=== PATIENT | male | born 1960 | race Caucasian/White ===

== ENCOUNTER 2020-09-21 16:20 | Outpatient (REF) | payer MEDICAID, OTHER, SELFPAY | END 2020-09-21 16:21 | disposition home or self-care (01) | LOC: HO.LAB 16:20 | PROVIDERS: PCP Nurse Practitioner Family; Visit Provider Internal Medicine | DX: Z20.822 Contact with and (suspected) exposure to COVID-19 (principal) | CPT/HCPCS: 36415; C9803; U0003; U0005 ==

== ENCOUNTER 2021-10-13 11:47 | Emergency (ER) | payer MEDICAID, OTHER, SELFPAY ==
--- NOTE | ~2021-10-13 | XR_ITS ---
EXAMINATION: XR LUMBOSACRAL SPINE CLINICAL INFORMATION: Fall. Low back pain. COMPARISON: None TECHNIQUE: Three views of the lumbosacral spine. FINDINGS: Bone alignment is normal. No fracture or dislocation is seen. There may be a transitional vertebral body segment or 6 lumbar-type vertebral bodies. There is mild multilevel degenerative spondylosis. Disc spaces are normal. There is sacralization of the transverse process of the transitional segment and degenerative changes on the left. XR/XR lumbar spine 2-3V IMPRESSION: No fracture is seen. Mild degenerative changes.
--- NOTE | ~2021-10-13 | XR_ITS ---
EXAMINATION: XR HIP, RIGHT CLINICAL INFORMATION: Pain post fall COMPARISON: None TECHNIQUE: Two views of the right hip and one view of the pelvis. FINDINGS: Bone alignment is normal. No fracture or dislocation is seen. There are mild degenerative changes of the hip joints with small superior lateral acetabular osteophytes. The right hip joint is otherwise normal. Soft tissues are normal. XR/XR hip RT w PEL1V IMPRESSION: No fracture or dislocation seen.
[2021-10-13 11:54] VITALS: BP 150/90; PULSE 84; O2SAT 99
[2021-10-13 12:02] VITALS: BP 162/84; PULSE 90; RESP 17; TEMP 36.7; O2SAT 98; BMI 28.8
--- NOTE | 2021-10-13 12:08 | ED.FALL ---
HPI - Fall General Chief Complaint: Fall Stated Complaint: fall Time Seen by Provider: 10/13/21 12:01 Source: patient and EMS Mode of arrival: EMS History of Present Illness HPI Narrative: 61 y/o Kazakh speaking male presents to the ER via EMS with right sided low back pain and pain the right hip after he slipped and fell on the snow today just prior to arrival. He states he was walking when he slipped and fell backward onto his right buttock and low back. He was slowly able to get up. He did not hit his head or lose consciousness. He is not on any anticoagulation. He was able to slowly walk and bear weight on the right leg. MD complaint: fall Onset (ago): minute(s) Fall from: standing Fall witnessed: yes, by family Place fall occurred: home Loss of consciousness: none Prolonged down time: no Context: tripped/slipped Location of injury: back Severity: severe Severity scale (1-10): 8 Quality: sharp Associated symptoms (after fall): denies Related Data Previous Rx's Medication Instructions Recorded cyclobenzaprine 10 mg tablet 10 mg PO TID PRN #14 tab 10/13/21 ibuprofen 600 mg tablet 600 mg PO Q8H PRN #20 tab 10/13/21 lidocaine 5 % topical patch 1 patch TOPICAL DAILY #15 ea 10/13/21 Allergies Allergy/AdvReac Type Severity Reaction Status Date / Time No Known Allergies Allergy Unverified 05/05/20 18:31 Review of Systems Review of Systems: Constitutional: No Fever, No Chills Cardiovascular: No Chest Pain, No SOB Gastrointestinal: No Nausea, No Vomiting, No abdominal Pain Genitourinary:No Hematuria Musculoskeletal: + joint pain, + Myalgias Skin: No Skin Lesions, No rash Neuro: No Weakness, No Numbness, No Dizziness, No Headache Psych: No Anxiety/Panic, No Depression Heme/Lymph: No Bruising PMFSH Past Medical History Medical History (Updated 10/13/21 @ 13:02 by LYNDON Lowe) No known health problems Social History Social History Advance Directives: No Advance Directives Information Provided: No Physical Exam Vital Signs: Vital Signs: Last Vital Signs Temp 98.0 F 10/13/21 12:02 Pulse 90 10/13/21 12:02 Resp 17 10/13/21 12:02 BP 162/84 H 10/13/21 12:02 Pulse Ox 98 10/13/21 12:02 BMI result Body Mass Index 28.8 Appearance: Alert. Oriented X3. No acute distress. Eyes: Pupils equal, round and reactive to light. ENT: Pharynx normal. Neck: Normal inspection. Neck supple. CVS: Normal heart rate and rhythm. Pulses normal. Respiratory: No respiratory distress. Breath sounds normal. Abdomen: Soft and nontender. +BS x4 Back: right upper, middle and lower lumbar area with soft tissue tenderness, no midline tenderness. no ecchymosis, no CVA tenderness. Pelvis: stable, no tenderness of the right hip. normal passive ROM of the right hip with pain in the low back on straight leg raise Skin: Skin warm and dry. Normal skin color. Normal skin turgor. No rashes. Extremities:atraumatic x4 Neuro: Oriented X 3. Slow but steady gait Course Course Course Narrative: 7-year-old male presents to the ER with right lower back and right hip pain after he slipped and fell on the snow earlier today. He stepped back and fell on to snow that was on top of concrete. No head strike or loss of consciousness. Not on anticoagulation. He has soft tissue tenderness of the right lower back with no midline tenderness. Given trauma will get x-rays of the lumbar spine and right hip. Doubt acute fracture. Reevaluation(s) Reevaluation #1: X-rays today are normal. No evidence of any acute fractures. His pain is most likely muscular, either due to strain or contusion. Will plan to DC home with supportive care including NSAIDs, Lidoderm, p.r.n. muscle relaxers. Encouraged follow-up with his primary care doctor. Stable for discharge home. Critical Care Time Critical Care Time Critical Care Time: No Discharge Plan Discharge Clinical Impression: Contusion of lower back, Strain of fascia of lower back Patient Disposition: Home, Self-Care Instructions: Low Back Strain (ED), Lower Back Exercises (ED) Additional Instructions: Your x-rays today are normal. Your pain is most likely muscular. No bending, lifting or twisting. Use ice several times per day for 20 minutes at a time for the next 48 hours and then change to heat. Take medications as prescribed to help with pain and discomfort. Follow up with your Primary Care Doctor this week. If your pain worsens, if you develop new numbness, tingling, weakness, loss of function or incontinence call 911 or come back to the ER right away for evaluation. Tus radiograf?as de hoy son normales. Lo m?s probable es que tu dolor sea muscular. Sin doblar, levantar o torcer. Use hielo varias veces al d?a dwayne 20 minutos a la vez dwayne las pr?ximas 48 horas y luego cambie a calor. [place] los medicamentos seg?n lo prescrito para ayudar con el dolor y la incomodidad. Charly un seguimiento con park m?dico de atenci?n primaria esta semana. Si park dolor empeora, si desarrolla entumecimiento, hormigueo, debilidad, p?rdida de funci?n o incontinencia, llame al 911 o regrese a la naomi de emergencias de inmediato para chula evaluaci?n. Prescriptions: New cyclobenzaprine 10 mg tablet 10 mg PO TID PRN (Reason: muscle spasm) Qty: 14 0RF ibuprofen 600 mg tablet 600 mg PO Q8H PRN (Reason: pain) Qty: 20 0RF lidocaine 5 % adhesive patch,medicated 1 patch topical DAILY Qty: 15 0RF Rx Instructions: leave on most painful area for up to 12 hrs
[2021-10-13] MEDS: Ibuprofen 600 MG TABLET PO (13:27)
[2021-10-13] MEDS: HYDROcodone Bit/Acetam 5/325 TABLET 1 TAB PO (13:27)
== END 2021-10-13 13:52 | disposition home or self-care (01) ==
PROVIDERS: Emergency Provider Emergency Medicine
DX: S30.0XXA Contusion of lower back and pelvis, initial encounter (principal); M25.551 Pain in right hip; W00.0XXA Fall on same level due to ice and snow, initial encounter; Y93.9 Activity, unspecified; Y92.9 Unspecified place or not applicable; Y99.9 Unspecified external cause status; Z79.899 Other long term (current) drug therapy
CPT/HCPCS: 72100; 73502; 99283

== ENCOUNTER 2024-05-12 09:51 | Outpatient (REF) | payer MEDICAID, OTHER, SELFPAY ==
[2024-05-12 11:45] LABS: Estimated Average Glucose 128 mg/dL; Hemoglobin A1c % 6.1 % (<6.0)
[2024-05-12 11:59] LABS: Alanine Aminotransferase 25 U/L (0-40); Albumin Level 4.5 g/dL (3.5-5.0); Alkaline Phosphatase 53 U/L (39-117); Anion Gap 9 (12-20); Aspartate Amino Transferase 20 U/L (5-37); Bilirubin Total 0.8 mg/dL (0.0-1.0); Blood Urea Nitrogen 16 mg/dL (9-16); Calcium 9.2 mg/dL (8.4-10.2); Carbon Dioxide 27 mmol/L (22-29); Chloride 108 mmol/L (96-108); Cholesterol 265 mg/dL (<200); Estimated Glomerular Filt Rate > 60; Glucose Random 138 mg/dL (60-115); HDL Cholesterol 60 mg/dL (>40); LDL Cholesterol Calculated 181 mg/dL (<100); Potassium 3.8 mmol/L (3.3-5.1); Sodium 140 mmol/L (135-145); Total Protein 7.6 g/dL (6.5-8.0); Triglycerides 123 mg/dL (<150)
== END 2024-05-12 09:52 | disposition home or self-care (01) ==
LOC: HO.HHCL 09:51
PROVIDERS: Visit Provider Nurse Practitioner Primary Care
DX: Z00.00 Encounter for general adult medical examination without abnormal findings (principal); Z13.220 Encounter for screening for lipoid disorders; I10 Essential (primary) hypertension
CPT/HCPCS: 36415; 80053; 80061; 83036

== ENCOUNTER → 2024-10-21 07:52 | Outpatient (REF) | payer MEDICAID, OTHER, SELFPAY ==
--- NOTE | 2024-10-21 07:58 | CA_ITS ---
Transthoracic Echocardiogram Patient (Last, First, Middle): Dru Ramirez, Gender: Male Date of : 1960 Age: 64 Procedure Date: 10/21/2024 Procedure Type: Transthoracic Echocardiogram Location: OP Height: 177.8 cm Weight: 90.72 kg BSA: 2.09 m2 Heart Rate: bpm BP: 130 / 80 mmHg [employer] Radio Technician: TOO Referring MD: Bernadette Woodruff NP Edi Coordinator: Gaudencio Burns MD Symptoms: CHEST PAIN ABNORMAL EKG R94.31 HTN I10 Study Quality: Good ECG Rhythm: Sinus Conclusions: - 1. Normal LV ejection fraction of 60-65% with grade 1 diastolic dysfunction 2. Normal cardiac valvular Dopplers 3. Normal RV systolic pressure 4. Mildly dilated ascending aorta at 3.7 cm 5. No pericardial effusion Findings Left Ventricle Normal left ventricular size, thickness, and systolic function. The visually estimated ejection fraction is between 60-65%. Spectral Doppler is indicative of an impaired relaxation filling pattern. E/E prime ratio is <8, consistent with normal filling pressures. Evidence suggests grade I (mild) diastolic dysfunction. Right Ventricle Normal right ventricular cavity size and systolic function. Atria Both atria are normal in size. There is no evidence of interatrial shunt. Aortic Valve Normal aortic valve structure and function. There is no aortic valve stenosis. There is no aortic valve regurgitation. Mitral Valve Normal mitral valve structure and function. There is trace mitral valve regurgitation. There is no mitral valve stenosis. Pulmonic Valve The pulmonic valve is likely normal. Tricuspid Valve Normal tricuspid valve structure. There is trace tricuspid valve regurgitation. The right ventricular systolic pressure is normal. The right ventricular systolic pressure is 16 mmHg. Normal right atrial pressure. There is no evidence of pulmonary hypertension. Great Vessels The pulmonary artery was not well visualized. There is mild dilatation of the ascending aorta measuring 3.70 cm. Venous The inferior vena cava is normal in size and collapses greater than 50% with inspiration. Pericardium/Pleural There is no evidence of pericardial effusion. Prior Study Comparison No prior study available for comparison. Measurements 2D Linear Measurements IVSd: 0.97 0.6-0.9/0.6-1.0 cm LVIDd: 4.79 3.9-5.3/4.2-5.9 cm LVIDd Index: 2.29 2.4-3.2/2.2-3.1 cm/m2 LVIDs: 2.75 2.0-3.6 cm LVPWd: 1.01 0.7-1.1 cm Ao Root: 3.80 2.1-3.5 cm LA Diam: 3.40 2.7-3.8/3.0-4.0 cm LAIDs Index: 1.63 1.5-2.3 cm/m2 LV Mass: 208.83 67-162/88-224 g LV Mass Index: 99.92 43-95/49-115 g/m2 LVOT Diam: 2.30 3.0+(-)1.3 cm 2D Systolic Function EF 4C: 55.50 >55% EF 2C: 69.40 >55% EF BiP: 63.60 >55% Mitral Valve MV Pk E: 0.64 MV PK A: 0.94 MV Decel Time: 125.00 E/A: 0.70 E'Lateral: 8.59 E'Medial: 5.98 E/E' Med: 10.70 E/E' Lat: 7.40 PHT: 37.00 MVA PHT: 5.95 Decel Sublette: 5.11 Aortic Valve AoV Pk Ryley: 1.55 AoV Pk Grad: 10.00 LVOT LVOT Pk Ryley: 0.93 LVOT Mn Ryley: 0.68 LVOT VTI: 0.18 LVOT Pk Grad: 3.00 LVOT Mn Grad: 2.00 LVOT Diam: 2.30 LVOT Area: 4.15 Diastolic Function MV Pk E: 0.64 MV Pk A: 0.94 E/A: 0.70 E'Medial: 5.98 E/E' Med: 10.70 E' Laterial: 8.59 E/E' Lat: 7.40 Right Ventricle TAPSE (mm): 25.00 TVS' Ryley: 11.00 Tricuspid Valve TR Pk Ryley: 1.83 TR Pk Grad: 13.00 RA Press: 3.00 RVSP: 16.00 Great Vessels Aorta Ao Root-2D: 3.80 2.0-3.7 cm Ao Asc: 3.70 2.1-3.4 cm Ao Arch: 2.60 Pulmonary Valve PV Pk Ryley: 1.21 Peak PV Grad: 6.00 Updated in Other Vendor System with Status of Final Gaudencio Burns MD electronically signed on 10/22/2024 12:27:41 PM with status of Final
--- OUTSIDE RECORDS SUMMARY | 2024-10-21 08:03 | XMS_ITS | Encounter Summary ---
Author Organization [facility] Address [address] [facility] [address] [place] [address] Care Team Providers Care Superintendent Radio Communications Name Role Phone Bernadette Woodruff Primary Care Provider Encounter Details Date Type Department Care Team (Late st Contact Info) Description 12/12/2022 Orders Only [facility] [address] [place] [address] María Johnson LPN Social History Tobacco Use Types Packs/Day Years Used Date Smoking Tobacco: Never Assessed Sex and Gender Information Value Date Recorded Sex Assigned at Male 06/18/2022 10:22 AM EDT Legal Sex Male 10:22 AM EDT Gender Identity Male 06/18/2022 10:22 AM EDT Sexual Orientation Choose not to disclose 2021 10:22 AM EDT documented as of this encounter Plan of Treatment Upcoming Encounters Date Type Department Care Team (Late st Contact Info) Description 01/26/2025 2:30 PM EDT Office Visit [facility] OPTOMETRY [address] [place] [address] ZaneAnca gary, OD [address] [place] [address] documented as of this encounter Visit Diagnoses Not on filedocumented in this encounter Care Teams Superintendent Radio Communications Relationship Specialty Start Date End Date Bernadette Woodruff ANP [address] [place] [address] PCP - General Family Medicine 04/11/22 documented as of this encounter
--- OUTSIDE RECORDS SUMMARY | 2024-10-21 08:03 | XMS_ITS | Clinical Summary ---
Author Organization [facility] Address [address] [place] [address] Care Team Providers Care Carpenter Helper Name Role Phone Bernadette Woodruff Primary Care Provider [phone] Allergies No known active allergies Medications polyethylene glycol (GoLYTELY) solutionIndicat ions:Screen for colon cancer Take according to instructions provided by physician. OK to substitute 4000 mL 4 Active polyethylene glycol (GoLYTELY) solution Refer to prep instructions provided by your physician. Add 1 gallon (128 ounces) of water to the GoLytely/Colyte/ Nulytely container and refrigerate. At 4 PM the day before your procedure, drink one 8-ounce glass of the bowel preparation solution every 10 - 15 minutes until half the container is empty, about 8 glasses. Five (5) hours before your procedure drink one 8-ounce glass of the bowel preparation solution every 10 - 15 minutes until the entire container is empty. Continue to drink clear non-alcoholic liquids up until 2 hours prior to your procedure. 4000 mL 4 11/03/19 25 Active Active Problems Problem Noted Date Diagnosed Date Hypertension 12/23/2013 Encounters Date Type Department Care Team Description 10/13/2024 Prep for [facility] [address] [place] [address] Bulb Tester: Sudarshan Clifford MD PhD 08/04/2024 Prep for [facility] Endoscopy [address] [place] [address] Sydnie Thompson MD from Last 3 Months Social History Tobacco Use Types Packs/Day Years Used Date Smoking Tobacco: Never Comments:: Sex and Gender Information Value Date Recorded Sex Assigned at Male 10/24/2023 10:29 AM EST Legal Sex Male 7:48 AM EDT Gender Identity Not on file Sexual Orientation Not on file Last Filed Vital Signs Vital Sign Reading Time Taken Comments Blood Pressure 163/106 12/23/2013 11:06 AM EDT Pulse 67 12/23/2013 11:06 AM EDT Temperature 36.5 ??C (97.7 ??F) 12/23/2013 11:06 AM E DT Respiratory Rate - - Oxygen Saturation - - Inhaled Oxygen Concentration - - Weight 84.8 kg (187 lb) 12/23/2013 11:06 AM EDT Height 185.4 cm (6' 1 ) 12/23/2013 11:06 AM EDT Body Mass Index 24.67 12/23/2013 11:06 AM EDT Plan of Treatment Upcoming Encounters Date Type Department Care Team (Latest Contact Info) Description 12/01/2024 2:45 PM EDT Hospital Encounter [facility] Endoscopy [address] [place] [address] Wendy Keys MD [address] [place] [address] 12/01/2024 2:45 PM EDT - 12/01/2024 3:30 PM EDT Surgery [facility] Endoscopy [address] [place] [address] Wendy Keys MD [address] [place] [id number] COLONOSCOPY SCREENING, LOW RISK WITH POSSIBLE MODERATE SEDATION Scheduled Procedures Name Priority Associated Diagnoses Date/Ti me COLONOSCOPY SCREENING, LOW RISK WITH POSSIBLE MODERATE SEDATION Encounter for screening colonoscopy 12/01/2024 2:45 PM EDT Health Maintenance Due Date Last Done Comments Basic Metabolic Panel 1960 Cologuard 1960 Colon Cancer Screening 1960 Colonoscopy 1960 FOBT / Fit Test 1960 HIV Screening 1960 Hepatitis C Screening 1960 Sigmoidoscopy 1960 DTaP,Tdap,and Td Vaccines (1 - Tdap) 1983 Pneumococcal Vaccine: 50+ Ye ars (1 of 1 - PCV) 2011 Zoster Vaccines (1 of 2) 2011 COVID-19 Vaccine (1 - 2023-2 5 season) 2024 Influenza Vaccine (#1) 2024 Alcohol/Substance Use Screening 08/19/2024 Depression Screening and Follow-Up 08/19/2024 Social Drivers of Health [place] ual Screening 08/19/2024 RSV Vaccine (60+ years old a nd patients) (1 - 1-dose 75+ series) 02/18/2036 Hepatitis B Vaccines Aged Out No long er eligible based on patient's age to complete this topic [place] [address] [place] [address] HS/FREE [address]ARE [address] [place], [place] [address]HEALTH HSNO/FREE CARE Care Teams Carpenter Helper Relationship Specialty Start Date End Date Bernadette Woodruff [address] [place] [id number] PCP - General 10/24/23
--- OUTSIDE RECORDS SUMMARY | 2024-10-21 08:03 | XMS_ITS | Clinical Summary ---
Author Organization [employer] Address [address] [facility] 7t [place] [address] Care Team Providers Care Legal Referee Name Role Phone Bernadette Woodruff NAILA Primary Care Provider Allergies Active Allergy Reactions Criticality Noted Date Comments Lisinopril Cough 07/03/2018 Medications fluticasone (Flonase) 50 MCG/ACT nasal sprayIndications: Non-seasonal allergic rhinitis, unspecified trigger INSTILL 2 SPRAYS IN EACH NOSTRIL ONCE DAILY IN THE MORNING NEEDED 48 g 023 Active Daily Fiber 43 % powder MIX 1 TEASPOONFUL WITH 8 OUNCES OF WATER AND DRINK UP TO THREE TIMES DAILY MAY INCREASE TO 2 TEASPOONFUL THREE TIMES DAILY as tolerated 576 g 1 023 Active ammonium lactate (Lac-Hydrin) 12 % lotionIndications :Dry skin APPLY TO FEET TWICE DAILY 225 g 5 024 Active atorvastatin (Lipitor) 80 MG tabletIndications :Hyperlipidemia, unspecified hyperlipidemia type TAKE 1 TABLET BY MOUTH AT BEDTIME 90 tablet 3 024 Active pantoprazole (ProtoNix) 40 MG EC tablet Take 1 tablet (40 mg) by mouth in the morning. 90 tablet 024 Active clotrimazole (Clotrimazole Anti-Fungal) 1 % cream APPLY TO THE AFFECTED AREA(S) TOPICALLY TO FEET TWICE DAILY DIRECTED 45 g 1 024 Active fluconazole (Diflucan) 150 MG tabletIndications :Tinea pedis of both feet Take 1 tablet (150 mg) by mouth every 7 (seven) days. 4 tablet 024 Active amLODIPine (Norvasc) 10 MG tablet TAKE 1 TABLET BY MOUTH EVERY DAY IN THE MORNING 90 tablet 1 024 Active labetalol (Normodyne) 200 MG tabletIndications :Benign essential HTN TAKE 2 TABLETS BY MOUTH TWICE DAILY 360 tablet 1 025 Active losartan (Cozaar) 100 MG tabletIndications :Essential hypertension TAKE 1 TABLET BY MOUTH EVERY DAY 90 tablet 1 025 Active losartan (Cozaar) 100 MG tabletIndications :Essential hypertension TAKE 1 TABLET BY MOUTH EVERY DAY 90 tablet 1 024 2024 Discontinued labetalol (Normodyne) 200 MG tabletIndications :Benign essential HTN TAKE 2 TABLETS BY MOUTH TWICE DAILY 360 tablet 1 024 2024 Discontinued Active Problems Problem Noted Date Diagnosed Date Benign essential HTN 10/16/2023 Overview (10/16/2023): amlodipine 10mg, losartan 100mg, labetalol 200mg 2 tabs BID Gastroesophageal reflux disease without esophagi tis 02/23/2016 Pure hypercholesterolemia 02/23/2016 Encounters Date Type Department Care Team Description 10/11/2024 Refill [facility] CHC MED & PEDS [address] [place] [address] Bernadette Woodruff ANP Benign essential HTN; Essential hypertension 07/24/2024 Patient Outreach [facility] MEDICINE [address] [place] [address] Bernadette Woodruff ANP Pre-visit Planning ([facility] screening was completed on 12/16/2023) from Last 3 Months Immunizations Name Administration Dates Next Due Hep A / Hep B 2013 Hep A, Adult 10/12/2013 Hep B, adult 09/08/2013,06/04/2013 Influenza injectable quadriv alent IIV4 with preservative 06/16/2018,05/09/2017,06/13/2016 Influenza injectable quadriv alent preservative free 07/18/2022,06/24/2019 Influenza, Split (incl. phyllis fied surface antigen) 10/12/2013 Influenza, seasonal, injecta ble, preservative free 05/11/2024 Tdap 02/23/2016 Social History Tobacco Use Types Packs/Day Years Used Date Smoking Tobacco: Never Smokeless Tobacco: Never Alcohol Use Standard Drinks/Week Comments Yes 0 (1 standard drink = 0.6 oz pur e alcohol) Alcohol Answer Date Recorded Frequency of Alcohol Consumption Not on file 10/16/2023 Average Number of Drinks Not on file 024 Frequency of Binge Drinking Not on file 09/20 Score 0 10/16/2023 Housing Stability Answer Date Recorded What is your housing situation today? I have giancarlo israel 12/16/[address] you li ve. Do you have problems with any of the following? None of the above 12/16/2023 Food Insecurity Answer Date Recorded Within the past 12 months, y ou worried that your food would run out before you got money to buy more: Never True 12/16/2023 Within the past 12 months,th e food you bought just didn't last and you didn't have enough money to get more: Never True Transportation Answer Date Recorded In the past 12 months, has l ack of transportation kept you from medical appts, meetings, work or from getting things needed for daily living? No 12/16/2023 Utilities Answer Date Recorded In the past 12 months, has t he electric, gas, oil or water company threatened to shut off services in your home? No 12/16/2023 Depression Answer Date Recorded Patient Health Questionnaire-2 Score 0 10/16/2023 Internet Access Answer Date Recorded Internet Access Q1 Yes 07/24/2024 Internet Access Q2 Not on file 07/24/2024 Sex and Gender Information Value Date Recorded Sex Assigned at Male 06/18/2022 10:22 AM EDT Legal Sex Male 10:22 AM EDT Gender Identity Male 06/18/2022 10:22 AM EDT Sexual Orientation Choose not to disclose 2021 10:22 AM EDT Last Filed Vital Signs Vital Sign Reading Time Taken Comments Blood Pressure 170/90 05/11/2024 3:49 PM EDT Pulse 89 05/11/2024 3:32 PM EDT Temperature 36.9 ??C (98.4 ??F) 05/11/2024 3:32 PM ED T Respiratory Rate 18 05/11/2024 3:32 PM EDT Oxygen Saturation 96% 05/11/2024 3:32 PM EDT Inhaled Oxygen Concentration - - Weight 94.5 kg (208 lb 6.4 oz) 05/11/2024 3:32 P M EDT Height 185.4 cm (6' 1 ) 05/11/2024 3:32 PM EDT Body Mass Index 27.5 05/11/2024 3:32 PM EDT Plan of Treatment Upcoming Encounters Date Type Department Care Team (Late st Contact Info) Description 01/26/2025 2:30 PM EDT Office Visit [facility] OPTOMETRY [address] [place] [address] Zane, Anca, OD [address] [place] [address] Health Maintenance Due Date Last Done Comments CT Colonography 1961 Colonoscopy 1961 Colorectal Cancer Screening 1961 FIT DNA/Cologuard 1961 FIT 1961 FOBT 1961 HIV Screening 1961 Sigmoidoscopy 1961 Alcohol/Substance Use Screening 1973 Hepatitis C Screening 1979 Pneumococcal Vaccine: 50+ Years (1 of 1 - PCV) 2011 Zoster Vaccines (1 of 2) 2011 Depression Screening 10/16/2024 10/16/2023, 10/16/19 24 SDOH Screening 12/15/2024 12/16/2023 COVID-19 Vaccine (2 - 2023- season) 2025 09/29/2021 Postponed from 04/19/2024 (Patient Refused) Tobacco Screening 05/11/2025 05/11/2024 Diabetes: Hemoglobin A1C 05/12/2025 05/12/2024, 0712/2021 DTaP/Tdap/Td Vaccines (2 - Td or Tdap) 02/22/2026 02/23/2016 Lipid Panel 05/12/2029 05/12/2024, 03/12/2022 RSV Patients and Patients Aged 60 years or older (1 - 1-dose 75+ series) 02/18/2036 Hepatitis B Vaccines Completed 09/08/2013, 06/04/2013, 2013 Hepatitis A Vaccines Aged Out 10/12/2013, 02/18/20 13 No longer eligible based on patient's age to complete this topic Influenza Vaccine Completed 05/11/2024, , 06/24/2019, Additional history exists HIB Vaccines Aged Out No longer eligi ble based on patient's age to complete this topic HPV Vaccines Aged Out No longer eligi ble based on patient's age to complete this topic IPV Vaccines Aged Out No longer eligi ble based on patient's age to complete this topic Meningococcal Vaccine Aged Out No xavi larissa eligible based on patient's age to complete this topic RSV under 20 months Aged Out No longe r eligible based on patient's age to complete this topic Rotavirus Vaccines Aged Out No longer eligible based on patient's age to complete this topic Procedures Procedure Name Priority Date/Time Associated Diagnosis Comments HEMOGLOBIN A1C Routine 05/12/2024 10:01 AM EDT Healthcare maintenance LIPID PANEL, STANDARD Routine 05/12/2024 10:01 AM EDT Lipid screening from Last 3 Months or Most Recently Relevant to Health Maintenance Results * (ABNORMAL) Hemoglobin A1c (05/12/2024 10:01 AM EDT) Hemoglobin A1c 6.1(H) <6.0 % [facility] Comment:Hemoglobin A1C Refer ence Range Adults: 4.8 - 6.0 % Non diabetic: < 6.0 % Goal: < 7.0 %Additional Action Suggested: > 8.0 %Note: Hemoglobin A1c results are invalid for patients with abnormal amounts of HbF. Blood transfusions may impact the HbA1c concentration in the patient sample. Estimated Average Glucose 128 mg/dL [facility] Comment:eAG = Estimated ave rage glucose which is %A1C expressed asaverage glucose, using the formula of the [id number] Glucose study (ADAG), Diabetes Care, Vol.31,#8,Mar. 2007 Blood Venous blood specimen / Unknown 05/12/2024 10:01 AM EDT 05/12/2024 11:20 AM EDT us Bernadette Woodruff ANP LAB BLOOD ORDERABLES Final Resul t [facility] [address] [place] [address] [phone] * (ABNORMAL) Lipid Panel, Standard (05/12/2024 10:01 AM EDT) Triglycerides 123 <150 mg/dL [facility] Comment:Desirable Triglyceri de: less than 150 mg/dLBorderline High Triglyceride 150-199 mg/dLHigh Triglyceride: 200-499 mg/dLVery High Triglyceride: greater than or equal to 5OO mg/dL Cholesterol 265(H) <200 mg/dL [facility] Comment:Desirable Cholestero l: less than 200 mg/dLBorderline High Cholesterol: 200-239 mg/dLHigh Cholesterol: greater than 239 mg/dL LDL Cholesterol Calculated 181(H) <100 mg/dL [facility] Comment:Desirable LDL: less than 100 mg/dLNear Optimal/Above Optimal LDL: 110- 129 mg/dLBorderline High LDL: 130-159 mg/dLHigh LDL: 160-189 mg/dLVery High LDL: greater than or equal to 190 mg/dL HDL Cholesterol 60 >40 mg/dL [facility] Comment:Desirable HDL: great er than 40 mg/dL Note: This HDL assay may give artificially low results in patients with liver disease. Blood Venous blood specimen / Unknown 05/12/2024 10:01 AM EDT 05/12/2024 11:20 AM EDT Bernadette Woodruff [facility] BLOOD ORDERABLES Final Resul t [facility] [address] [place] [address] [phone] from Last 3 Months or Most Recently Relevant to Health Maintenance Insurance * Guarantor: Dru Ramirez Account Type Relation to Patient Date of Phone Billing Address Personal/Family Self 1960 [address] [facility] [address] [place] [address] [employer] * Guarantor: Gen Ashleyaro Account Type Relation to Patient Date of Phone Billing Address Personal/Family Self [address] [place] [address] * Guarantor: Mario Yost, Dru Account Type Relation to Patient Date of Phone Billing Address Personal/Family Self [address] [place] [address] * Guarantor: Mario Yost Dru Account Type Relation to Patient Date of Phone Billing Address Personal/Family Self [address] [place] [address] Care Teams Legal Referee Relationship Specialty Start Date End Date Bernadette Woodruff ANP [address] [place] [id number] PCP - General Family Medicine 04/11/22
--- OUTSIDE RECORDS SUMMARY | 2024-10-21 08:03 | XMS_ITS | Encounter Summary ---
Author Organization [employer] Address [address] [facility] 7[address] [place] [address] Care Team Providers Care Belt Picker Name Role Phone Bernadette Woodruff Primary Care Provider [phone] Encounter Details Date Type Department Care Team (Latest Contact Info) Description 10/29/[address] [facility] CONVERSIONS Dental, Provider, DDS Social History Tobacco Use Types Packs/Day Years [...] 2:30 PM EDT Office Visit [facility] OPTOMETRY [address] [place] [address] Zane, Anca, OD [address] [place] [address] documented as of this encounter Visit Diagnoses Not on filedocumented in this encounter Care Teams Belt Picker Relationship Specialty Start Date End Date Bernadette Woodruff ANP [address] [place] [address] PCP - General Family Medicine 04/11/22 documented as of this encounter
--- OUTSIDE RECORDS SUMMARY | 2024-10-21 08:03 | XMS_ITS | Referral Summary ---
Author Organization [facility] Address [address] [place] [address] Care Team Providers Care Auto Body Repair Technician Name Role Phone Bernadette Woodruff Primary Care Provider [phone] Encounters Date Type Department Care Team Description 10/13/2024 Prep for [facility] [address] [place] [address] Monorail Operator: Sudarshan Clifford MD PhD 08/04/2024 Prep for [facility] Endoscopy [address] [place] [address] Sydnie Thompson MD from Last 3 Months Allergies No known active allergies Medications polyethylene [...] Problem Noted Date Diagnosed Date Hypertension 12/23/2013 Social History Tobacco Use Types Packs/Day Years [...] Description 12/01/2024 2:45 PM EDT Hospital Encounter [facility] Endoscopy [address] [place] [address] Wendy Keys MD [address] [place] [address] 12/01/2024 2:45 PM EDT - 12/01/2024 3:30 PM EDT Surgery [facility] Endoscopy [address] [place] [address] Wendy Keys MD [address] [place] [phone] COLONOSCOPY SCREENING, LOW RISK WITH POSSIBLE MODERATE SEDATION Scheduled Procedures Name Priority Associated Diagnoses Date/Ti me COLONOSCOPY SCREENING, LOW RISK WITH POSSIBLE MODERATE SEDATION Encounter for screening colonoscopy 12/01/2024 2:45 PM EDT Insurance [place] HS[place]/FREE CARE [facility] HSNO/FREE CARE Care Teams Auto Body Repair Technician Relationship Specialty Start Date End Date Bernadette Woodruff [address] [place] [phone] PCP - General 10/24/23
--- OUTSIDE RECORDS SUMMARY | 2024-10-21 08:03 | XMS_ITS | Encounter Summary ---
Author Organization [email or web address] Address [address] [facility] 7t [place] [address] Care Team Providers Care Dye Blender Name Role Phone Bernadette Woodruff Primary Care Provider [phone] Reason for Visit * Reason Comments Med Refill Encounter Details Date Type Department Care Team ([facility] st Contact Info) Description 10/11/2024 Refill [facility] CHC MED & PEDS [address] [place] [address] Bernadette Woodruff ANP [address] [place], [place] [phone] Benign essential HTN; Essential hypertension Social History Tobacco Use Types Packs/Day Years [...] 2:30 PM EDT Office Visit [facility] OPTOMETRY [address] [place] [address] Anca Degroot, OD [address] [place] [address] documented as of this encounter Visit Diagnoses Diagnosis Benign essential HTN Essential hypertension Unspecified essential hypertension documented in this encounter Care Teams Dye Blender Relationship Specialty Start Date End Date Bernadette Woodruff ANP [address] [place] [address] PCP - General Family Medicine 04/11/22 documented as of this encounter
--- OUTSIDE RECORDS SUMMARY | 2024-10-21 08:03 | XMS_ITS | Encounter Summary ---
Author Organization [facility] Address [address] [place] [address] Care Team Providers Care Business Representative Name Role Phone Bernadette Woodruff Primary Care Provider [phone] Encounter Details Date Type Department Care Team (Late st Contact Info) Description 10/13/2024 Prep for Case [facility] [address] [place] [address] Buffing And Polishing Wheel Repairer: Sudarshan Clifford MD PhD [address] [place] [phone] Social History Tobacco Use Types Packs/Day Years Used Date Smoking Tobacco: Never Comments:: Sex and Gender Information Value Date Recorded Sex Assigned at Male 10/24/2023 10:29 AM EST Legal Sex Male 7:48 AM EDT Gender Identity Not on file Sexual Orientation Not on file documented as of this encounter Plan of Treatment Upcoming Encounters Date Type Department Care Team (Latest Contact Info) Description 12/01/2024 2:45 PM EDT Hospital Encounter [facility] Endoscopy [address] [place] [address] Wendy Keys MD [address] [place] [phone] 12/01/2024 2:45 PM EDT - 12/01/2024 3:30 PM EDT Surgery [facility] Endoscopy [address] [place] [address] Wendy Keys MD [address] [place] [phone] COLONOSCOPY SCREENING, LOW RISK WITH POSSIBLE MODERATE SEDATION Scheduled Procedures Name Priority Associated Diagnoses Date/Ti me COLONOSCOPY SCREENING, LOW RISK WITH POSSIBLE MODERATE SEDATION Encounter for screening colonoscopy 12/01/2024 2:45 PM EDT documented as of this encounter Visit Diagnoses Not on filedocumented in this encounter Care Teams Business Representative Relationship Specialty Start Date End Date Bernadette Woodruff [address] [place] [phone] PCP - General 10/24/23 documented as of this encounter
--- OUTSIDE RECORDS SUMMARY | 2024-10-21 08:03 | XMS_ITS | Encounter Summary ---
Author Organization [employer] [facility] Address [address] [facility] 7[address] [place] [address] Care Team Providers Care Companion Caregiver Name Role Phone Bernadette Woodruff Primary Care Provider [phone] Encounter Details Date Type Department Care Team (Late st Contact Info) Description 09/11/2022 Orders Only [facility] MEDICINE [address] [place] [address] Mel Sandoval LPN Social History Tobacco Use Types Packs/Day [...] Description 01/26/2025 2:30 PM EDT Office Visit [facility] OPTOMETRY [address] [place] [address] Zane, Anca, OD [address] [place] [address] documented as of this encounter Visit Diagnoses Not on filedocumented in this encounter Care Teams Companion Caregiver Relationship Specialty Start Date End Date Bernadette Woodruff ANP [address] [place] [address] PCP - General Family Medicine 04/11/22 documented as of this encounter
== END ==
LOC: HO.CARD 07:52
PROVIDERS: Visit Provider Nurse Practitioner Primary Care
DX: I49.3 Ventricular premature depolarization (principal)
CPT/HCPCS: 93225; 93306

== ENCOUNTER → 2024-10-21 07:58 | Outpatient (BNV) | payer SELFPAY | PROVIDERS: Visit Provider Internal Medicine Cardiovascular Disease | DX: I49.3 Ventricular premature depolarization (principal); I49.1 Atrial premature depolarization | CPT/HCPCS: 93227 ==

== ENCOUNTER → 2024-12-03 07:40 | Outpatient (REF) | payer SELFPAY ==
--- OUTSIDE RECORDS SUMMARY | 2024-12-03 07:42 | XMS_ITS | Encounter Summary ---
Author Organization [employer] Address [address] [facility] 7[address] [place] [address] Care Team Providers Care Shop Laborer Name Role Phone Bernadette Woodruff Primary Care Provider [phone] Encounter Details Date Type Department Care Team (Late st Contact Info) Description 12/12/2022 Orders Only [facility] CHC MED & PEDS [address] [place] [address] María Johnson LPN Social History Tobacco Use [...] Description 01/26/2025 2:30 PM EDT Office Visit [facility] OPTOMETRY [address] [place] [address] ZaneAnca gary, OD [address] [place] [address] documented as of this encounter Visit Diagnoses Not on filedocumented in this encounter Care Teams Shop Laborer Relationship Specialty Start Date End Date Bernadette Woodruff ANP [address] [place] [address] PCP - General Family Medicine 04/11/22 documented as of this encounter
--- OUTSIDE RECORDS SUMMARY | 2024-12-03 07:42 | XMS_ITS | Referral Summary ---
Author Organization [facility] Address [address] [place] [address] Care Team Providers Care Cotton Presser Name Role Phone Bernadette Woodruff Primary Care Provider [phone] Encounters Date Type Department Care Team Description 12/01/2024 2:23 PM EDT - 12/01/2024 2:58 PM EDT Surgery [facility] [address] [place] [address] Wendy Keys MD COLONOSCOPY SCREENING, LOW RISK WITH POSSIBLE MODERATE SEDATION 12/01/2024 1:33 PM EDT - 12/01/2024 4:43 PM EDT Hospital Encounter [facility] [address] [place] [address] Wendy Keys MD Encounter for screening colonoscopy Discharge Disposition: Home or Self Care (01) 11/25/2024 Telephone [facility] [address] [place] [phone] María Davila RN 11/02/2024 Telephone [facility] [address] [place] [phone] Inspector And Sorter: Adri Hill NP 10/13/2024 Prep for Case [facility] [address] [place] [id number] Inspector And Sorter: Sudarshan Clifford MD PhD from Last 3 Months Allergies Active Allergy Reactions Criticality Noted Date Comments Lisinopril Cough 07/03/2018 Medications polyethylene glycol (GoLYTELY) solutionIndicat ions:Screen for colon cancer Take according to instructions provided by physician. OK to substitute 4000 mL 4 Active lisinopriL (PRINIVIL,ZESTR IL) 10 mg tablet Take 10 mg by mouth once a day. Active losartan (COZAAR) 100 mg tablet Take 1 tablet by mouth once a day. [address] (PROTONIX) 40 mg tablet Take 40 mg by mouth. 4 Active labetaloL (NORMODYNE) 200 mg tablet Take 2 tablets by mouth 2 times a day. 5 Active atorvastatin (LIPITOR) 80 mg tablet Take 1 tablet by mouth at bed time. 4 Active amLODIPine (NORVASC) 10 mg tablet Take 1 tablet by mouth once a day. 4 Active Active Problems Problem Noted Date Diagnosed Date Hypertension 12/23/2013 Social History Tobacco Use Types Packs/Day Years Used Date Smoking Tobacco: Never Smokeless Tobacco: Never Tobacco Cessation:Counseling Given: Not Answered Comments:: Alcohol Use Standard Drinks/Week Comments Not Currently 0 (1 standard drink = 0.6 oz pur e alcohol) here and there Sex and Gender Information Value Date Recorded Sex Assigned at Male 10/24/2023 10:29 AM EST Legal Sex Male 7:48 AM EDT Gender Identity Not on file Sexual Orientation Not on file Last Filed Vital Signs Vital Sign Reading Time Taken Comments Blood Pressure 126/85 12/01/2024 4:20 PM EDT Pulse 96 12/01/2024 4:20 PM EDT Temperature 36.7 ??C (98.1 ??F) 12/01/2024 3:50 PM ED T Respiratory Rate 16 12/01/2024 4:20 PM EDT Oxygen Saturation 96% 12/01/2024 4:20 PM EDT Inhaled Oxygen Concentration - - Weight 93 kg (205 lb) 11/25/2024 9:02 AM EDT Height 182.9 cm (6') 12/01/2024 2:24 PM EDT Body Mass Index 27.8 11/25/2024 9:02 AM EDT Plan of Treatment Not on file Procedures * Due to [place] Ling[place] law, this organization might not be sharing negative HIV tests. Procedure Name Priority Date/Time Associated Diagnosis Comments COLONOSCOPY SCREENING, LOW RISK WITH POSSIBLE MODERATE SEDATION 12/01/2024 2:55 PM EDT Encounter for screening colonoscopy COLONOSCOPY 12/01/2024 from Last 3 Months Results * Due to [place] law, this organization might not be sharing negative HIV tests. * COLONOSCOPY (12/01/2024) Narrative Procedure Note Wendy Keys MD - 12/01/2024 2:46 PM EDT [facility] Patient Name: Dru Yost Procedure Date: 12/01/2024 2:46 PM Date of : 1960 Admit Type: Outpatient Age: 64 Room: [facility] 03 Gender: Male Note Status: Finalized Attending MD: Wendy Keys MD Procedure: Colonoscopy Indications: Screening for colorectal malignant neoplasm Comorbidities Providers: Wendy Keys MD Referring MD: Requesting Provider: Medicines: Fentanyl 150 micrograms IV, Midazolam 7 mg IV Estimated Blood Loss: Estimated blood loss: none. Procedure: Pre-Anesthesia Assessment: - Prior to the procedure, a History and Physicalwas performed, and patient medications and allergieswere reviewed. The patient is competent. The risks and benefits of the procedure and the sedation optionsand risks were discussed with the patient. Allquestions were answered and informed consent was obtained. Patient identification and proposed procedure were verified by the physician, the nurse and the manufacturing plant technician in the pre-procedure area in theprocedure room in the endoscopy suite. Mental Status Examination: normal. Prophylactic Antibiotics: The patient does not require prophylactic antibiotics. Prior Anticoagulants: The patient has taken no anticoagulant or antiplatelet agents. Afterreviewing the risks and benefits, the patient was deemed in satisfactory condition to undergo the procedure.The anesthesia plan was to use moderate sedation / analgesia (conscious sedation). Immediately priorto administration of medications, the patient was re-assessed for adequacy to receive sedatives. The heart rate, respiratory rate, oxygen saturations, blood pressure, adequacy of pulmonary ventilation,and response to care were monitored throughout the procedure. The physical status of the patient was re-assessed after the procedure. After I obtained informed consent, the scope was passed under direct vision. Throughout theprocedure, the patient's blood pressure, pulse, and oxygen saturations were monitored continuously. The was introduced through the anus and advanced to thececum, identified by appendiceal orifice and ileocecalvalve. The colonoscopy was performed without difficulty.The patient tolerated the procedure well. The qualityof the bowel preparation was good. Findings: A 3 mm polyp was found in the rectum. The polyp was sessile. Thepolyp was removed with a jumbo cold forceps. Resection and retrieval were complete. A few diverticula were found in the sigmoid colon. Impression: - One 3 mm polyp in the rectum, removed with ajumbo cold forceps. Resected and retrieved. - Diverticulosis in the sigmoid colon. Recommendation: - Resume previous diet. - Continue present medications. - Repeat colonoscopy date to be determined after pending pathology results are reviewed for surveillance. Wendy Keys MD 12/01/2024 3:49:36 PM This report has been signed electronically. Number of Addenda: 0 Note Initiated On: 12/01/2024 2:46 PM Wendy Keys MD PROVATION PROCEDURES Final Resul t from Last 3 Months Insurance [employer] HSNO/FREE CARE ALL[place] [id number] HSNO/FREE CARE Care Teams Cotton Presser Relationship Specialty Start Date End Date Bernadette Woodruff [address] [place] [address] [facility] - General 10/24/23
--- OUTSIDE RECORDS SUMMARY | 2024-12-03 07:42 | XMS_ITS | Encounter Summary ---
Author Organization [facility] Address [address] [place] [address] Care Team Providers Care Air Pollution Auditor Name Role Phone Bernadette Woodruff Primary Care Provider [phone] Reason for Visit * Auth/Cert (Routine) Specialty Diagnoses / Procedures Referred By Italo ann Referred To Contact Diagnoses Encounter for screening colonoscopy Encounter for screening colonoscopy [Z12.11] Procedures COLONOSCOPY SCREENING, LOW RISK WITH POSSIBLE MODERATE SEDATION Referral ID Status Reason Start Date Expiration Date Visits Re quested Visits Authorized [id number] [phone] Encounter Details Date Type Department Care Team (Late st Contact Info) Description 12/01/2024 2:23 PM EDT - 12/01/2024 2:58 PM EDT Surgery [facility] [address] [place] [address] [phone] Wendy Keys MD [address] [place], [place] [phone] COLONOSCOPY SCREENING, LOW RISK WITH POSSIBLE MODERATE SEDATION Social History Tobacco Use Types Packs/Day Years [...] on file documented as of this encounter Last Filed Vital Signs Vital Sign Reading Time Taken Comments Blood Pressure 180/84 12/01/2024 2:55 PM EDT Pulse 95 12/01/2024 2:57 PM EDT Temperature 36.8 ??C (98.2 ??F) 12/01/2024 2:24 PM ED T Respiratory Rate 16 12/01/2024 2:57 PM EDT Oxygen Saturation 98% 12/01/2024 2:57 PM EDT Inhaled Oxygen Concentration - - Weight 93 kg (205 lb) 11/25/2024 9:02 AM EDT Height 182.9 cm (6') 12/01/2024 2:24 PM EDT Body Mass Index 27.8 11/25/2024 9:02 AM EDT documented in this encounter Medications at Time of Discharge amLODIPine (NORVASC) 10 mg tablet Take 1 tablet by mouth once a day. 05/19/2024 atorvastatin (LIPITOR) 80 mg tablet Take 1 tablet by mouth at bed time. 12/17/2023 labetaloL (NORMODYNE) 200 mg tablet Take 2 tablets by mouth 2 times a day. 10/12/2024 lisinopriL (PRINIVIL,ZESTRI L) 10 mg tablet Take 10 mg by mouth once a day. losartan (COZAAR) 100 mg tablet Take 1 tablet by mouth once a day. 10/12/[address] (PROTONIX) 40 mg tablet Take 40 mg by mouth. 02/24/2024 polyethylene glycol (GoLYTELY) solutionIndicati ons:Screen for colon cancer Take according to instructions provided by physician. OK to substitute 4000 mL 01/22/2024 documented as of this encounter H&P Notes * Wendy Keys MD - 12/01/2024 3:16 PM EDT Endoscopy History and Physical Chief Complaint: No diagnosis found. Dru Yost is an 64 y.o. male who is here for a(n) Colonoscopy at [facility]. The indication for the procedure is screening. Past Medical History: Diagnosis Date GERD (gastroesophageal reflux disease) Hyperlipidemia Hypertension Low back pain History reviewed. No pertinent surgical history. There is no additional cardiovascular, pulmonary, or neurological medical problems. There is no personal or family history of sedation complications unless otherwise documented. Medications Prior to Admission Medication Sig Dispense Refill Last Dose/Taking amLODIPine (NORVASC) 10 mg tablet Take 1 tablet by mouth once a day. 12/01/2024 Morning atorvastatin (LIPITOR) 80 mg tablet Take 1 tablet by mouth at bed time. 11/30/2024 Evening labetaloL (NORMODYNE) 200 mg tablet Take 2 tablets by mouth 2 times a day. 11/30/2024 lisinopriL (PRINIVIL,ZESTRIL) 10 mg tablet Take 10 mg by mouth once a day. losartan (COZAAR) 100 mg tablet Take 1 tablet by mouth once a day. 11/30/[address] (PROTONIX) 40 mg tablet Take 40 mg by mouth. 11/30/2024 Morning polyethylene glycol (GoLYTELY) solution Take according to instructions provided by physician. OK tosubstitute 4000 mL 0 12/01/2024 Morning Allergies Allergen Reactions Lisinopril Cough Social History[1] No family history on file. Review of systems were reviewed and otherwise negative. Objective BP (!) 168/86 Pulse 99 Temp 36.8 ??C (98.2 ??F) (Temporal) Resp 15 Ht 1.829 m (6') Wt 93 kg (205 lb) SpO2 100% BMI 27.80 kg/m?? Physical Exam Cardiovascular: Rate and Rhythm: Normal rate. Pulmonary: Effort: Pulmonary effort is normal. Abdominal: General: There is no distension. Palpations: Abdomen is soft. Tenderness: There is no abdominal tenderness. Neurological: Mental Status: He is alert and oriented to person, place, and time. Sedation Plan Pre-sedation assessment: Time since last food or drink: > 6 hours ASA classification: class 2 - patient with mild systemic disease Mallampati score: I - soft palate, uvula, fauces, pillars visible Assessment & Plan The patient is appropriate for the scheduled procedure. The patient will receive moderate sedation. [1] Social History Socioeconomic History Marital status: Unknown Spouse name: Not on file Number of children: Not on file Years of education: Not on file Highest education level: Not on file Occupational History Not on file Tobacco Use Smoking status: Never Smokeless tobacco: Never Tobacco comments: : Vaping Use Vaping status: Never Used Substance and Sexual Activity Alcohol use: Not Currently Comment: here and there Drug use: Never Sexual activity: Defer Other Topics Concern Not on file Social History Narrative Not on file documented in this encounter Procedure Notes * Wendy Keys MD - 12/01/2024 2:46 PM EDTAssociated Order(s): COLONOSCOPY [facility] Patient Name: Dru Yost Procedure Date: 12/01/2024 2:46 PM Date of : 1960 Admit Type: Outpatient Age: 64 Room: [place] [address] Gender: Male Note Status: Finalized Attending MD: Wendy Keys MD Procedure: Colonoscopy Indications: Screening for colorectal malignant neoplasm Comorbidities Providers: Wendy Keys MD Referring MD: Requesting Provider: Medicines: Fentanyl 150 micrograms IV, Midazolam 7 mg IV Estimated Blood Loss: Estimated blood loss: none. Procedure: Pre-Anesthesia Assessment: - Prior to the procedure, a History and Physical was performed, and patient medications and allergies were reviewed. The patient is competent. The risks and benefits of the procedure and the sedation options and risks were discussed with the patient. All questions were answered and informed consent was obtained. Patient identification and proposed procedure were verified by the physician, the nurse and the freezer laboratory technician in the pre-procedure area in the procedure room in the endoscopy suite. Mental Status Examination: normal. Prophylactic Antibiotics: The patient does not require prophylactic antibiotics. Prior Anticoagulants: The patient has taken no anticoagulant or antiplatelet agents. After reviewing the risks and benefits, the patient was deemed in satisfactory condition to undergo the procedure. The anesthesia plan was to use moderate sedation / analgesia (conscious sedation). Immediately prior to administration of medications, the patient was re-assessed for adequacy to receive sedatives. The heart rate, respiratory rate, oxygen saturations, blood pressure, adequacy of pulmonary ventilation, and response to care were monitored throughout the procedure. The physical status of the patient was re-assessed after the procedure. After I obtained informed consent, the scope was passed under direct vision. Throughout the procedure, the patient's blood pressure, pulse, and oxygen saturations were monitored continuously. The was introduced through the anus and advanced to the cecum, identified by appendiceal orifice and ileocecal valve. The colonoscopy was performed without difficulty. The patient tolerated the procedure well. The quality of the bowel preparation was good. Findings: A 3 mm polyp was found in the rectum. The polyp was sessile. The polyp was removed with a jumbo cold forceps. Resection and retrieval were complete. A few diverticula were found in the sigmoid colon. Impression: - One 3 mm polyp in the rectum, removed with a jumbo cold forceps. Resected and retrieved. - Diverticulosis in the sigmoid colon. Recommendation: - Resume previous diet. - Continue present medications. - Repeat colonoscopy date to be determined after pending pathology results are reviewed for surveillance. Wendy Keys MD 12/01/2024 3:49:36 PM This report has been signed electronically. Number of Addenda: 0 Note Initiated On: 12/01/2024 2:46 PM documented in this encounter Plan of Treatment Pending Results Name Type Priority Associated Diagnoses Date /Time Tissue Exam Pathology and Cytology Routine Encounter for screening colonoscopy 12/01/2024 3:44 PM EDT Scheduled Orders Name Type Priority Associated Diagnoses Orde r Schedule Tissue Exam Pathology and Cytology Timed Encounter for screening colonoscopy Release Upon Ordering for 1 Occurrences starting 12/01/2024, 1 completed documented as of this encounter Procedures * Due to [place] state law, this organization might not be sharing negative HIV tests. Procedure Name Priority Date/Time Associated Diagnosis Comments COLONOSCOPY SCREENING, LOW RISK WITH POSSIBLE MODERATE SEDATION 12/01/2024 2:55 PM EDT Encounter for screening colonoscopy COLONOSCOPY 12/01/2024 documented in this encounter Results * Due to [place] state law, this organization might not be sharing negative HIV tests. * COLONOSCOPY (12/01/2024) Narrative Procedure Note Wendy Keys MD - 12/01/2024 2:46 PM EDT [facility] Patient Name: Dru Yost Procedure Date: 12/01/2024 2:46 PM Date of : 1960 Admit Type: Outpatient Age: 64 Room: [place] [address] Gender: Male Note Status: Finalized Attending MD: Wendy Keys MD Procedure: Colonoscopy Indications: Screening for colorectal malignant neoplasm Comorbidities Providers: Wendy eKys MD Referring MD: Requesting Provider: Medicines: Fentanyl [...] by the physician, the nurse and the freezer laboratory technician in the pre-procedure area in theprocedure [...] Keys MD PROVATION PROCEDURES Final Resul t documented in this encounter Visit Diagnoses Diagnosis Encounter for screening colonoscopy Encounter for screening colonoscopy documented in this encounter Administered Medications Inactive Administered Medications - up to 3 most recent administrations Medication Order MAR Action Action Date Dose Rate Site fentaNYL (PF) injection intravenous, As needed, Starting on Tu12/01/24 at 1524, Until Sat12/01/24 at 1548, Intra-op Given 12/01/2024 3:32 PM EDT 25 mcg Given 12/01/2024 3:30 PM EDT 25 mcg Given 12/01/2024 3:26 PM EDT 50 mcg midazolam (VERSED) injection intravenous, As needed, Starting on Sat12/01/24 at 1524, Until Sat12/01/24 at 1548, Intra-op Given 12/01/2024 3:34 PM EDT 1 mg Given 12/01/2024 3:32 PM EDT 1 mg Given 12/01/2024 3:30 PM EDT 1 mg sodium chloride 0.9% flush 3-10 mL 3-10 mL, intravenous, PRN Flush, line care, Flush peripheral line with a minimum of 3 mL, before and after use or every 12 hours., Starting on Sat12/01/24 at 1407, Until Sat12/01/24 at 1918, Preprocedure (GI) documented in this encounter Active and Recently Administered Medications Times are shown in EDT. PRN Medication Order 11/29/2024 11/30/2024 12/01/2024 fentaNYL (PF) injection (CANCELED) intravenous, As needed, Starting on Sat12/01/24 at 1524, Until Sat12/01/24 at 1548, Intra-op 1524 (Given - Provid er: Alessandra Ho RN)1526 (Given - Provider: Alessandra Ho RN)1530 (Given - Provider: Alessandra Ho RN)1532 (Given - Provider: Alessandra Ho, MARI) midazolam (VERSED) injection (CANCELED) intravenous, As needed, Starting on Sat12/01/24 at 1524, Until Sat12/01/24 at 1548, Intra-op 1524 (Given - Provid er: Alessandra Ho RN)1527 (Given - Provider: Alessandra Ho RN)1530 (Given - Provider: Alessandra Ho RN)1532 (Given - Provider: Alessandra Ho, MARI)1534 (Given - Provider: Alessandra Ho, MARI) sodium chloride 0.9% flush 3-10 mL 3-10 mL, intravenous, PRN Flush, line care, Flush peripheral line with a minimum of 3 mL, before and after use or every 12 hours., Starting on 12/01/24 at 1407, Until Sat12/01/24 at 1918, Preprocedure (GI) documented in this encounter Care Teams Air Pollution Auditor Relationship Specialty Start Date End Date Woodruff Bernadette [address] [place] [id number] PCP - General 10/24/23 documented as of this encounter
--- OUTSIDE RECORDS SUMMARY | 2024-12-03 07:42 | XMS_ITS | Clinical Summary ---
Author Organization [employer] Address [address] [facility] [address] [place] [address] Care Team Providers Care Painter Plate Name Role Phone Bernadette Woodruff NAILA Primary Care Provider [phone] Allergies Active Allergy Reactions Criticality Noted Date Comments Lisinopril Cough 07/03/2018 Medications fluticasone (Flonase) 50 MCG/ACT nasal sprayIndications:N on-seasonal allergic rhinitis, unspecified trigger INSTILL 2 SPRAYS IN EACH NOSTRIL ONCE DAILY IN THE MORNING NEEDED 48 g 09/13/19 23 Active Daily Fiber 43 % powder MIX 1 TEASPOONFUL WITH 8 OUNCES OF WATER AND DRINK UP TO THREE TIMES DAILY MAY INCREASE TO 2 TEASPOONFUL THREE TIMES DAILY as tolerated 576 g 1 12/14/19 23 Active ammonium lactate (Lac-Hydrin) 12 % lotionIndications: Dry skin APPLY TO FEET TWICE DAILY 225 g 5 10/16/19 24 Active atorvastatin (Lipitor) 80 MG tabletIndications: Hyperlipidemia, unspecified hyperlipidemia type TAKE 1 TABLET BY MOUTH AT BEDTIME 90 tablet 3 12/17/19 24 Active pantoprazole (ProtoNix) 40 MG EC tablet Take 1 tablet (40 mg) by mouth in the morning. 90 tablet 02/24/20 24 Active clotrimazole (Clotrimazole Anti-Fungal) 1 % cream APPLY TO THE AFFECTED AREA(S) TOPICALLY TO FEET TWICE DAILY DIRECTED 45 g 1 04/01/20 24 Active fluconazole (Diflucan) 150 MG tabletIndications: Tinea pedis of both feet Take 1 tablet (150 mg) by mouth every 7 (seven) days. 4 tablet 05/11/20 24 Active amLODIPine (Norvasc) 10 MG tablet TAKE 1 TABLET BY MOUTH EVERY DAY IN THE MORNING 90 tablet 1 05/19/20 24 Active labetalol (Normodyne) 200 MG tabletIndications: Benign essential HTN TAKE 2 TABLETS BY MOUTH TWICE DAILY 360 tablet 1 10/12/19 25 Active losartan (Cozaar) 100 MG tabletIndications: Essential hypertension TAKE 1 TABLET BY MOUTH EVERY DAY 90 tablet 1 10/12/19 25 Active Active Problems Problem Noted Date Diagnosed Date Benign essential HTN 10/16/2023 Overview (10/16/2023): amlodipine 10mg, losartan 100mg, labetalol 200mg 2 tabs BID Gastroesophageal reflux disease without esophagi tis 02/23/2016 Pure hypercholesterolemia 02/23/2016 Encounters Date Type Department Care Team Description 10/11/2024 Refill [facility] [address] [place], [place] [id number] Bernadette Woodruff ANP Benign essential HTN; Essential hypertension from Last 3 Months Immunizations Name Administration [...] Description 01/26/2025 2:30 PM EDT Office Visit [facility] OPTOMETRY [address] [place] [address] Zane, Anca, OD [address] [place], [place] [id number] Health Maintenance Due Date Last Done Comments CT Colonography 1961 FIT DNA/Cologuard 1961 FIT 1961 FOBT 1961 HIV Screening 1961 Sigmoidoscopy 1961 Alcohol/Substance Use Screening 1973 Hepatitis C Screening 1979 Pneumococcal Vaccine: 50+ Years (1 of 1 - PCV) 2011 Zoster Vaccines (1 of 2) 2011 Depression Screening 10/16/2024 10/16/2023, 10/16/19 SDOH Screening 12/15/2024 12/16/2023 COVID-19 Vaccine (2 - season) 2025 09/29/2021 Postponed from 04/19/2024 (Patient Refused) Tobacco Screening 05/11/2025 05/11/2024 Diabetes: Hemoglobin A1C 05/12/2025 05/12/2024, 02/17 DTaP/Tdap/Td Vaccines (2 - Td or Tdap) 02/22/2026 02/23/2016 Lipid Panel 05/12/2029 05/12/2024, 03/12/2022 Colonoscopy 12/01/2034 12/01/2024 Colorectal Cancer Screening 12/01/2034 RSV Patients and Patients Aged 60 years [...] Procedure Name Priority Date/Time Associated Diagnosis Comments HM COLONOSCOPY Routine 12/01/2024 2:38 PM EDT AMB REFERRAL TO GASTROENTEROLOGY Routine 12/01/2024 Screening for malignant neoplasm of colon HEMOGLOBIN A1C Routine 05/12/2024 10:01 AM EDT Healthcare maintenance LIPID PANEL, STANDARD Routine 05/12/2024 10:01 AM EDT Lipid screening from Last 3 Months or Most Recently Relevant to Health Maintenance Results * Hm Colonoscopy (12/01/2024 2:38 PM EDT) [facility] Provider HEALTH MAINTENANCE Final Result * Referral to Gastroenterology (12/01/2024) us Bernadette YOO OUTPATIENT REFERRAL ORDERABLES F inal Result * (ABNORMAL) Hemoglobin A1c (05/12/2024 10:01 AM EDT) Hemoglobin A1c 6.1(H) <6.0 % [facility] Comment:Hemoglobin A1C Refer ence Range Adults: 4.8 - 6.0 % Non diabetic: < 6.0 % Goal: < 7.0 %Additional Action Suggested: > 8.0 %Note: Hemoglobin A1c results are invalid for patients with abnormal amounts of HbF. Blood transfusions may impact the HbA1c concentration in the patient sample. Estimated Average Glucose 128 mg/dL [facility] Comment:eAG = Estimated ave rage glucose which is %A1C expressed asaverage glucose, using the formula of the [id number] Glucose study (ADAG), Diabetes Care, Vol.31,#8,Mar. 2007 Blood Venous blood specimen / Unknown 05/12/2024 10:01 AM EDT 05/12/2024 11:20 AM EDT us Bernadette Woodruff ANP LAB BLOOD ORDERABLES Final Resul t [facility] [address] [place] [phone] * (ABNORMAL) Lipid Panel, Standard (05/12/2024 10:01 AM EDT) Triglycerides 123 <150 mg/dL [facility] Comment:Desirable Triglyceri de: less than 150 mg/dLBorderline High Triglyceride 150-199 mg/dLHigh Triglyceride: 200-499 mg/dLVery High Triglyceride: greater than or equal to 5OO mg/dL Cholesterol 265(H) <200 mg/dL [facility] Comment:Desirable Cholestero l: less than 200 mg/dLBorderline High Cholesterol: 200-239 mg/dLHigh Cholesterol: greater than 239 mg/dL LDL Cholesterol Calculated 181(H) <100 mg/dL [facility] Comment:Desirable LDL: less than 100 mg/dLNear Optimal/Above Optimal LDL: 110- 129 mg/dLBorderline High LDL: 130-159 mg/dLHigh LDL: 160-189 mg/dLVery High LDL: greater than or equal to 190 mg/dL HDL Cholesterol 60 >40 mg/dL [facility] Comment:Desirable HDL: great er than 40 mg/dL Note: This HDL assay may give artificially low results in patients with liver disease. Blood Venous blood specimen / Unknown 05/12/2024 10:01 AM EDT 05/12/2024 11:20 AM EDT Bernadette Woodruff [facility] LAB BLOOD ORDERABLES Final Resul t [facility] [address] [place], [place] [phone] from Last 3 Months or Most Recently Relevant to Health Maintenance Insurance * Guarantor: Dru Ramirez Account Type Relation to Patient Date of Phone Billing Address Personal/Family Self 1960 [address] [place] [address] [employer] HSN FULL * Guarantor: Gen Ashleyaro Account Type Relation to Patient Date of Phone Billing Address Personal/Family Self [address] [place] [address] * Guarantor: Mario Yost Dru Account Type Relation to Patient Date of Phone Billing Address Personal/Family Self [address] [place] [address] * Guarantor: Mario Yost Dru Account Type Relation to Patient Date of Phone Billing Address Personal/Family Self [address] [place] [address] Care Teams Painter Plate Relationship Specialty Start Date End Date Bernadette Woodruff ANP [address] [place] [phone] PCP - General Family Medicine 04/11/22
--- OUTSIDE RECORDS SUMMARY | 2024-12-03 07:42 | XMS_ITS | Encounter Summary ---
Author Organization [employer] Address [address] [facility] [place] [address] Care Team Providers Care Atmospheric Physicist Name Role Phone Bernadette Woodruff Primary Care Provider [phone] Encounter Details Date Type Department Care Team (Latest Contact Info) Description 10/29/2019 Abstract [facility] CONVERSIONS Dental, Provider, DDS Social History Tobacco [...] Description 01/26/2025 2:30 PM EDT Office Visit [facility] OPTOMETRY [address] [place] [address] Zane, Anca, OD [address] [place] [address] documented as of this encounter Visit Diagnoses Not on filedocumented in this encounter Care Teams Atmospheric Physicist Relationship Specialty Start Date End Date Bernadette Woodruff ANP [address] [place] [address] PCP - General Family Medicine 04/11/22 documented as of this encounter
--- OUTSIDE RECORDS SUMMARY | 2024-12-03 07:42 | XMS_ITS | Clinical Summary ---
Author Organization [facility] Address [address] [place] [address] Care Team Providers Care Fat Pressroom Worker Name Role Phone Bernadette Woodruff Primary Care Provider [phone] Allergies Active Allergy Reactions Criticality Noted Date [...] EDT - 12/01/2024 2:58 PM EDT Surgery [facility] Endoscopy [address] [place] [address] Wendy Keys MD COLONOSCOPY SCREENING, LOW RISK WITH POSSIBLE MODERATE SEDATION 12/01/2024 1:33 PM EDT - 12/01/2024 4:43 PM EDT Hospital Encounter [facility] Endoscopy [address] [place] [address] Wendy Keys MD Encounter for screening colonoscopy Discharge Disposition: Home or Self Care (01) 11/25/[address] [facility] Endoscopy [address] [place] [address] María Davila RN 11/02/[address] [facility] [address] [place] [address] International Controller: Adri Hill NP 10/13/2024 Prep for Case [facility] [address] [place] [id number] International Controller: Sudarshan Clifford MD PhD from Last 3 Months Social History Tobacco [...] 11/25/2024 9:02 AM EDT Plan of Treatment Health Maintenance Due Date Last Done Comments Basic Metabolic Panel 1961 Cologuard 1961 HIV Screening 1961 Hepatitis C Screening 1961 Sigmoidoscopy 1961 Pneumococcal Vaccine: 50+ Ye ars (1 of 1 - PCV) 2011 Zoster Vaccines (1 of 2) 2011 COVID-19 Vaccine (1 - 2023-2 5 season) 2024 Alcohol/Substance Use Screening 08/19/2024 Depression Screening and Follow-Up 08/19/2024 Social Drivers of Health [place] ual Screening 08/19/2024 FOBT / Fit Test 05/12/2025 05/12/2024 DTaP,Tdap,and Td Vaccines (2 - Td or Tdap) 02/22/2026 02/23/2016 Colon Cancer Screening 12/01/2034 Colonoscopy 12/01/2034 12/01/2024 RSV Vaccine (60+ years old a nd patients) (1 - 1-dose 75+ series) 02/18/2036 Hepatitis B Vaccines Completed 09/08/2013, 06/04/2013, 2013 Influenza Vaccine Completed 05/11/2024, , 06/24/2019, Additional history exists Procedures * Due to [place] [employer] law, this organization might not be sharing negative HIV tests. Procedure Name Priority Date/Time Associated Diagnosis Comments COLONOSCOPY SCREENING, LOW RISK WITH POSSIBLE MODERATE SEDATION 12/01/2024 2:55 PM EDT Encounter for screening colonoscopy COLONOSCOPY 12/01/2024 from Last 3 Months Results * Due to [place] [employer] law, this organization might not be sharing negative HIV tests. * COLONOSCOPY (12/01/2024) Narrative Procedure Note Wendy Keys MD - 12/01/2024 2:46 PM EDT [facility] Gastroenterology Patient Name: Dru Yost Procedure Date: 12/01/2024 2:46 PM Date of : 1960 Admit Type: Outpatient Age: 64 Room: [facility] 03 Gender: Male Note Status: Finalized Attending [...] by the physician, the nurse and the mechanical sound technician in the pre-procedure area in theprocedure [...] 0 Note Initiated On: 12/01/2024 2:46 PM us Wendy Keys MD PROVATION PROCEDURES Final Resul t from Last 3 Months [facility] [place] HSNO/FREE CARE Care Teams Fat Pressroom Worker Relationship Specialty Start Date End Date Bernadette Woodruff [address] [place] [phone] PCP - General 10/24/23
--- OUTSIDE RECORDS SUMMARY | 2024-12-03 07:42 | XMS_ITS | Encounter Summary ---
Author Organization [facility] Address [address] [place] [address] Care Team Providers Care Freight Booker Name Role Phone Bernadette Woodruff Primary Care Provider [phone] Reason for Visit * Auth/Cert (Routine) Specialty Diagnoses / Procedures Referred By Italo ann Referred To Contact Diagnoses Encounter for screening colonoscopy Encounter for screening colonoscopy [Z12.11] Procedures COLONOSCOPY SCREENING, LOW RISK WITH POSSIBLE MODERATE SEDATION Referral ID Status Reason Start Date Expiration Date Visits Re quested Visits Authorized [id number] 99 [phone] Encounter Details Date Type Department Care Team (Latest Contact Info) Description 12/01/2024 1:33 PM EDT - 12/01/2024 4:43 PM EDT Hospital Encounter [facility] Endoscopy [address] [place] [address] Wendy Keys MD [address] [place] [address] Encounter for screening colonoscopy Discharge Disposition: Home or Self Care () Social History Tobacco Use Types Packs/Day Years [...] who is here for a(n) Colonoscopy at [facility]. The indication for the procedure is screening. [...] - 12/01/2024 2:46 PM EDTAssociated Order(s): COLONOSCOPY [facility] Gastroenterology Patient Name: Dru Yost Procedure Date: 12/01/2024 2:46 PM Date of : 1960 Admit Type: Outpatient Age: 64 Room: [place] [address] Gender: Male Note Status: Finalized Attending MD: [...] by the physician, the nurse and the train control electronic technician in the pre-procedure area in the [...] of this encounter Procedures * Due to [place] state law, this organization might not be sharing negative HIV tests. Procedure Name Priority Date/Time Associated Diagnosis Comments COLONOSCOPY SCREENING, LOW RISK WITH POSSIBLE MODERATE SEDATION 12/01/2024 2:55 PM EDT Encounter for screening colonoscopy COLONOSCOPY 12/01/2024 documented in this encounter Results * Due to [place] state law, this organization might not be sharing negative HIV tests. * COLONOSCOPY (12/01/2024) Narrative Procedure Note Wendy Keys MD - 12/01/2024 2:46 PM EDT [facility] Gastroenterology Patient Name: Dru Yost Procedure Date: 12/01/2024 2:46 PM Date of : 1960 Admit Type: Outpatient Age: 64 Room: [place] [address] Gender: Male Note Status: Finalized Attending MD: [...] by the physician, the nurse and the train control electronic technician in the pre-procedure area in theprocedure [...] Visit Diagnoses Diagnosis Encounter for screening colonoscopy documented in this encounter Administered Medications Inactive Administered Medications - up to 3 most recent administrations Medication Order MAR Action Action Date Dose Rate Site sodium chloride 0.9% flush 3-10 mL 3-10 mL, intravenous, PRN Flush, line care, Flush peripheral line with a minimum of 3 mL, before and after use or every 12 hours., Starting on e 12/01/24 at 1407, Until e 12/01/24 at 1918, Preprocedure (GI) documented in this encounter Active and Recently Administered Medications Times are shown in EDT. PRN Medication Order 11/29/2024 11/30/2024 12/01/2024 fentaNYL (PF) injection (CANCELED) intravenous, As needed, Starting on e 12/01/24 at 1524, Until Sat12/01/24 at 1548, Intra-op 1524 (Given - Provid er: Alessandra Ho RN)1526 (Given - Provider: Alessandra Ho RN)1530 (Given - Provider: Alessandra Ho RN)1532 (Given - Provider: Alessandra Ho RN) midazolam (VERSED) injection (CANCELED) intravenous, As needed, Starting on 12/01/24 at 1524, Until 12/01/24 at 1548, Intra-op 1524 (Given - Provid er: Alessandra Ho RN)1527 (Given - Provider: Alessandra Ho RN)1530 (Given - Provider: Alessandra Ho RN)1532 (Given - Provider: Alessandra Ho, MARI)1534 (Given - Provider: Alessandra Ho RN) sodium chloride 0.9% flush 3-10 mL 3-10 mL, intravenous, PRN Flush, line care, Flush peripheral line with a minimum of 3 mL, before and after use or every 12 hours., Starting on Sat12/01/24 at 1407, Until Sat12/01/24 at 1918, Preprocedure (GI) documented in this encounter Care Teams Freight Booker Relationship Specialty Start Date End Date Bernadette Woodruff [address] [place] [phone] PCP - General 10/24/23 documented as of this encounter
--- OUTSIDE RECORDS SUMMARY | 2024-12-03 07:42 | XMS_ITS | Encounter Summary ---
Author Organization [facility] Address [address] [address] [place] [address] Care Team Providers Care Sizer Hand Name Role Phone Bernadette Woodruff Primary Care Provider [phone] Encounter Details Date Type Department Care Team (Late st Contact Info) Description 09/11/2022 Orders Only [facility] MEDICINE [address] [place] [address] Mel Sandoval LPN Social History Tobacco Use [...] Description 01/26/2025 2:30 PM EDT Office Visit [facility] OPTOMETRY [address] [place] [address] Zane, Anca, OD [address] [place] [address] documented as of this encounter Visit Diagnoses Not on filedocumented in this encounter Care Teams Sizer Hand Relationship Specialty Start Date End Date Bernadette Woodruff ANP [address] [place] [address] PCP - General Family Medicine 04/11/22 documented as of this encounter
--- NOTE | 2024-12-03 07:45 | CA_ITS ---
Acquisition Time: 2024-12-03 08:09:08 Total Exercise Time: 00:05:31 Test Indications: ABN EKG Medications: SEE H&P Protocol: LINDY Max HR: 146 BPM 92% of Pred: 157 BPM Max BP: 168/98 mmHG Max Work Load: 7.0 METS Exercise stress test with exercise 5 mins 31 secs of Lindy Protocol, achieving 92% MPHR, with reports of mild SOB and feeling fatigued, no chest pain, with isolated PVCS and ventricular couplets, with normotensive response to exercise. Without EKG changes meeting criteria for ischemia. In recovery, breathing returned to baseline. Nuclear images pending. Test reviewed with Dr. Burns. Referred By: Bernadette Woodruff Electronically Signed By: Saroj Chao
== END ==
LOC: HO.CARD 07:40
PROVIDERS: Visit Provider Nurse Practitioner Primary Care
DX: R07.9 Chest pain, unspecified (principal); I10 Essential (primary) hypertension
CPT/HCPCS: 78452; 93017; A9500

== ENCOUNTER → 2024-12-03 07:45 | Outpatient (BNV) | payer SELFPAY | DX: R94.31 Abnormal electrocardiogram [ECG] [EKG] (principal) | CPT/HCPCS: 78452; 93016; 93018 ==

== ENCOUNTER 2025-05-22 08:01 | Emergency (ER) | payer MEDICAID, SELFPAY ==
--- NOTE | ~2025-05-22 | XR_ITS ---
CLINICAL HISTORY: cough 1 view chest x-ray Comparison: None provided Findings: Patchy airspace consolidation in the bilateral lung bases. Low lung volumes likely causing crowding of the pulmonary vasculature. No pleural effusion or pneumothorax. Heart size is normal. No acute osseous findings. IMPRESSION: 1. Patchy basilar consolidation greatest on the left. Low lung volumes. This document has been electronically signed by: Rosie Pratt MD on 05/22/2025 09:06:53
[2025-05-22 08:02] VITALS: BP 203/112; PULSE 73; RESP 20; TEMP 36.5; O2SAT 97; BMI 33.4
[2025-05-22 08:37] LABS: IDNOW Serial# 55D5AD1C; Strep A Nucleic Acid Negative (Negative)
[2025-05-22 08:48] LABS: COVID-19 Test Negative (Negative); IDNOW Serial# 58CA691E
--- NOTE | 2025-05-22 08:55 | ED_ITS ---
HPI - URI/Sore Throat General Chief Complaint: Upper Respiratory Symptoms Stated Complaint: cough, headache, vomiting Time Seen by Provider: 05/22/25 08:19 Source: patient and family Mode of arrival: ambulatory Limitations: no limitations History of Present Illness ED Provider: LYNDON Sorensen HPI Narrative: This is a 65-year-old male history of poorly-controlled hypertension, hyperlipidemia who presents to the emergency department with fatigue, malaise, myalgias, dry cough, congestion, sore throat, diffuse headache (without vision changes, dizziness, weakness) ongoing for a little bit over 1 week. Patient reports everybody at home is sick with the same symptoms. Denies chest pain, shortness of breath, nausea, vomiting, diarrhea, vision changes, dizziness, weakness Related Data Previous Rx's ?Medication ?Instructions ?Recorded cyclobenzaprine 10 mg tablet 10 mg PO TID PRN muscle s pasm #14 10/13/21 tabs ibuprofen 600 mg tablet 600 mg PO Q8H PRN pain #20 t abs 10/13/21 lidocaine 5 % topical patch 1 patch topical DAILY #15 ea 10/13/21 albuterol sulfate 90 mcg/actuation 2 inh inhalation Q4 -6H PRN 05/22/25 breath activated powder inhaler shortness of breath or wheezing #1 ea benzonatate 100 mg capsule 100 mg PO BID PRN cough #20 caps 05/22/25 doxycycline hyclate 100 mg capsule 100 mg PO BID 10 da ys #20 caps 05/22/25 prednisone 20 mg tablet 40 mg (2 x 20 mg) PO DAILY 5 days 05/22/25 #10 tabs Allergies Allergy/AdvReac Type Severity Reaction Status Date / Time lisinopril Allergy Cough Verified 05/22/25 08:07 Review of Systems Review of Systems: Yes all other systems are reviewed and are negative PMFSH Past Medical History Attestation statement: The following information was validated with the patient. Source: old records reviewed and nursing notes reviewed Medical History No known health problems Social History Social History Smoked in Last 30 Days: No Advance Directives: No Advance Directives Information Provided: Yes Physical Exam Exam: Exam: Appearance: Alert.? Oriented X3.? No acute distress.? Head: Normocephalic, atraumatic, no step-offs or deformities Eyes: Pupils equal, round and reactive to light.? ENT: Pharynx normal.? Neck: Normal inspection.? Neck supple.?No meningeal signs CVS: Normal heart rate and rhythm.? Pulses normal.? Respiratory: No respiratory distress.? Breath sounds mild expiratory wheezing.? Abdomen: Soft and nontender.? Skin: Skin warm and dry.? Normal skin color.? Normal skin turgor.? Extremities: No lower extremity edema.? No calf ttp. 5/5 strength to bilateral upper and lower extremities Neuro: Oriented X 3.? No motor deficit.? No sensory deficit. CN 2-12 intact Vital Signs: Vital Signs: Last Vital Signs Temp 97.7 F 05/22/25 08:02 Pulse 73 05/22/25 08:02 Resp 20 05/22/25 08:02 BP 190/89 H 05/22/25 09:03 Pulse Ox 97 05/22/25 09:06 O2 Del Method Room Air 05/22/25 09:06 BMI result Body Mass Index 33.4 vss Course Reevaluation(s) Reevaluation #1: COVID, strep negative. Chest x-ray showing patchy basilar consolidation greatest at the left low lung volumes. Patient will be discharged home with pneumonia treatment. He verbalizes understanding of this. Educated patient on diagnosis and treatment plan, answered all question, patient verbalizes understanding. At this time patient will be discharged home, advised to return with new or worsening symptoms. Educated on worrisome signs and symptoms and when to return. At this time I feel comfortable discharge home. Time: 10:26 Medications Administered Discontinued Medications Generic Name Dose Route Start Last Admin Trade Name Freq PRN Reason Stop Dose Admin Amlodipine Besylate 10 mg 05/22/25 08:54 05/22/25 09:03 Amlodipine Besylate 10 Mg Tablet PO 05/22/25 08:55 10 mg ONCE ONE Administration Protocol Lidocaine HCl 5 ml 05/22/25 08:54 05/22/25 09:04 Lidocaine Hcl Viscous 2 % 15 Ml Solution MUCOUS MEM 05/22/25 08:55 5 ml ONCE ONE Administration Medical Decision Making Medical Decision Making [facility] [place] Narrative: 0825 This is a 65-year-old male who presents to the emergency department with viral symptoms for a little bit over a week. Multiple sick contacts at home. Physical exam mild expiratory wheezing. Otherwise unremarkable. Vital signs significant for hypertension however he did not take his blood pressure medications this morning. History and physical exam consistent with viral illness. Possible bronchitis. Unlikely intracranial hemorrhage, stroke, posterior stroke, meningitis, encephalitis. Low suspicion for pneumonia, PE, ACS. Hypertension likely secondary to patient not taking meds. Plan viral testing, chest x-ray Differential Diagnosis Differential Diagnoses: The differential diagnosis associated with the presentation includes (History and physical exam consistent with viral illness. Possible bronchitis. Unlikely intracranial hemorrhage, stroke, posterior stroke, meningitis, encephalitis. Low suspicion for pneumonia, PE, ACS. Hypertension likely secondary to patient not taking meds.) Admission/Observation Consideration of admission/observation: Escalation of care including admission/observation considered Lab Data MDM Lab Attestation statement: I reviewed the patient's lab results. Labs: Lab Results 05/22/25 Range/Units 08:13 COVID-19 (PRASHANTH) Negative (Negative) COVID-19 Clin Com See Note S. pyogenes GrpA COREY Negative (Negative) Independent Interpretation I performed an independent interpretation of an: Plain X-Ray Radiology Impression Discussion of test interpretation with radiology: I have reviewed the radiologist's reading. External Record Review External record reviewed: Inpatient record, Office record, Outpatient record, Prior outpatient labs, Prior outpatient radiology and Primary care record Prescription Management I considered prescription management with: Other (bp meds, viscous lido ) Chronic Conditions Patient?s care impacted by: Hypertension Critical Care Time Critical Care Time Critical Care Time: Yes Total Critical Care Time: 35 Attestation: I attest to this time spent taking care of the patient, obtaining history, physical, reviewing labs, imaging, treatment of patients condition +/- specialist/hospitalist consult +/- procedure Discharge Plan Discharge Clinical Impression: Upper respiratory infection, Pneumonia, Hypertension Patient Disposition: Home, Self-Care Instructions: Pneumonia (ED), Hypertension (ED) Additional Instructions: Take your medications as prescribed. If you were prescribed antibiotics today, it is important that you take your medication to their entirety, do not skip any doses, do not finish them early. Follow-up with your primary care provider this week. Return to the emergency department with new or worsening symptoms. In case of emergency call 911 Prescriptions: New benzonatate 100 mg capsule 100 mg PO BID PRN (Reason: cough) Qty: 20 0RF doxycycline hyclate 100 mg capsule 100 mg PO BID 10 Days Qty: 20 0RF prednisone 20 mg tablet 40 mg PO DAILY 5 Days Qty: 10 0RF albuterol sulfate 90 mcg/actuation aerosol powdr breath activated 2 inh inhalation Q4-6H PRN (Reason: shortness of breath or wheezing) Qty: 1 0RF No Action cyclobenzaprine 10 mg tablet 10 mg PO TID PRN (Reason: muscle spasm) Qty: 14 0RF ibuprofen 600 mg tablet 600 mg PO Q8H PRN (Reason: pain) Qty: 20 0RF lidocaine 5 % adhesive patch,medicated 1 patch topical DAILY Qty: 15 0RF Rx Instructions: leave on most painful area for up to 12 hrs Referrals: Physician,Unknown J [Primary Care Provider, Medical] Print Language: Citizen [place]
[2025-05-22 09:03] VITALS: BP 190/89
[2025-05-22] MEDS: Lidocaine HCl Viscous 2 % 15 ML SOLUTION 5 ML MUCOUS MEM (09:04)
[2025-05-22 09:06] VITALS: O2SAT 97
--- NOTE | 2025-05-22 09:07 | PC.NURSE ---
patient a&ox3, rr equal/non labored, pt medicated for htn and sore throat, swabs previously drawn, call singh within reach, plan of care ongoing
--- OUTSIDE RECORDS SUMMARY | 2025-05-22 09:19 | XMS_ITS | Clinical Summary ---
Author Organization [employer] Address [address] [facility] [address] [place] [address] Care Team Providers Care Vaccine Manager Name Role Phone Bernadette Woodruff Primary Care Provider [phone] Allergies Active Allergy Reactions Criticality Noted Date [...] hyperlipidemia type TAKE 1 TABLET BY MOUTH EVERY DAY AT BEDTIME 90 tablet 3 025 Active furosemide (Lasix) 20 MG tabletIndications :Lower extremity edema Take 1 tablet (20 mg) by mouth Once per day for 5 days. 5 tablet 025 Active fluconazole (Diflucan) 150 MG tabletIndications :Tinea pedis of both feet Take 1 tablet (150 mg) by mouth 1 (one) time per week. For 3 weeks 3 tablet 025 Active aluminum chloride (Drysol) 20 % external solutionIndicatio ns:Hyperhidrosis of palms and soles Apply once daily at bedtime; once excessive sweating has stopped, may decrease to once or twice weekly, or as needed. Wash treated area in the morning 60 mL 1 025 Active pantoprazole (ProtoNix) 40 MG EC tablet TAKE 1 TABLET BY MOUTH EVERY DAY IN THE MORNING 90 tablet 025 Active losartan (Cozaar) 100 MG tabletIndications :Essential hypertension TAKE 1 TABLET BY MOUTH EVERY DAY 90 tablet 1 025 Active labetalol (Normodyne) 200 MG tabletIndications :Benign essential HTN TAKE 2 TABLETS BY MOUTH TWICE DAILY 360 tablet 1 025 Active clotrimazole (Clotrimazole Anti-Fungal) 1 % creamIndications: Tinea pedis of both feet APPLY TO THE AFFECTED AREA(S) TOPICALLY TO FEET TWICE DAILY DIRECTED 45 g 1 025 Active clotrimazole (Clotrimazole Anti-Fungal) 1 % creamIndications: Tinea pedis of both feet APPLY TO THE AFFECTED AREA(S) TOPICALLY TO FEET TWICE DAILY DIRECTED 45 g 025 2024 Discontinued Active Problems Problem Noted Date Diagnosed Date Benign essential HTN 10/16/2023 Overview (10/16/2023): amlodipine 10mg, losartan 100mg, labetalol 200mg 2 tabs BID Gastroesophageal reflux disease without esophagi tis 02/23/2016 Pure hypercholesterolemia 02/23/2016 Encounters Date Type Department Care Team Description 05/14/2025 Refill [facility] [address] [place] [address] Bernadette Woodruff ANP Tinea pedis of both feet 04/20/2025 Telephone [facility] [address] [place] [address] Bernadette Woodruff ANP No Show 04/11/2025 Refill [facility] [address] [place], [place] [phone] Bernadette Woodruff ANP Essential hypertension; Benign essential HTN 03/09/2025 2:00 PM EDT Office Visit [facility] [address] [place] [address] Bernadette Woodruff ANP Benign essential HTN (Primary Dx); Bilateral leg edema; Tinea pedis of both feet; Palpitations; Pure hypercholesterolemia 03/09/2025 Travel 03/08/2025 Telephone [facility] [address] [place] [address] Bernadette Woodruff ANP Error (VOID this visit) 03/08/2025 Telephone [facility] [address] [place] [address] Bernadette Woodruff ANP chart prep 03/01/2025 Refill [facility] [address] [place], [place] [phone] Bernadette Woodruff ANP 02/24/2025 Refill [facility] [address] [place], [place] [phone] Bernadette Woodruff ANP from Last 3 Months Immunizations Immunization Administration Dates Next Due Hep A / [...] Not on file 09/20 Score 0 10/16/2023 Depression Answer Date Recorded Patient Health Questionnaire-9 Score 0 03/09/2025 Patient Health Questionnaire-9 Score 0 03/09/2025 Last PHQ-9: Questionnaire Data Not on file 0 03/09/2025 Housing Stability Answer Date Recorded What is your housing situation today? I have giancarlo israel 03/09/[address] you li ve. Do you have problems with any of the following? None of the above 03/09/2025 Food Insecurity Answer Date Recorded Within the past 12 months, y ou worried that your food would run out before you got money to buy more: Never True 03/09/2025 Within the past 12 months,th e food you bought just didn't last and you didn't have enough money to get more: Never True Transportation Answer Date Recorded In the past 12 months, has l ack of transportation kept you from medical appts, meetings, work or from getting things needed for daily living? No 03/09/2025 Utilities Answer Date Recorded In the past 12 months, has t he electric, gas, oil or water company threatened to shut off services in your home? No 03/09/2025 Depression Answer Date Recorded Patient Health Questionnaire-2 Score 0 03/09/2025 Internet Access Answer Date Recorded Internet Access [...] Sign Reading Time Taken Comments Blood Pressure 150/98 03/09/2025 2:27 PM EDT Pulse 92 03/09/2025 2:09 PM EDT Temperature 36.4 C (97.6 F) 02/03/2025 3:51 PM EDT Respiratory Rate 20 03/09/2025 2:09 PM EDT Oxygen Saturation 98% 02/03/2025 3:51 PM EDT Inhaled Oxygen Concentration - - Weight 96.2 kg (212 lb) 03/09/2025 2:09 PM EDT Height 195.6 cm (6' 5 ) 03/09/2025 2:09 PM EDT Body Mass Index 25.14 03/09/2025 2:09 PM EDT Plan of Treatment Health Maintenance Due Date Last Done Comments CT Colonography 1961 FIT DNA/Cologuard 1961 FIT 1961 FOBT 1960 HIV Screening 1960 Sigmoidoscopy 1960 Hepatitis C Screening 1979 COVID-19 Vaccine ( season) 2025 09/29/2021 Influenza Vaccine (#1) 2025 4, 07/18/2022, 06/24/2019, Additional history exists DTaP/Tdap/Td Vaccines (2 - Td or Tdap) 02/22/2026 02/23/2016 Alcohol/Substance Use Screening 03/09/2026 03/09/2025 Depression Screening 03/09/2026 03/09/2025, 03/09/20 25 Disability Screening 03/09/2026 03/09/2025 Pneumococcal Vaccine: 50+ Years (1 of 1 - PCV) 03/09/2026 Postponed from 2011 (Patient Refused) SDOH Screening 03/09/2026 03/09/2025 Tobacco Screening 03/09/2026 03/09/2025 Zoster Vaccines (1 of 2) 03/09/2026 Pos tponed from 2011 (Patient Refused) Lipid Panel 05/12/2029 05/12/2024, 03/12/2022 Colonoscopy 12/01/2034 12/01/2024 Colorectal Cancer Screening 12/01/2034 RSV Patients and Patients Aged 60 years or older (1 - 1-dose 75+ series) 02/18/2036 Hepatitis B Vaccines Completed 09/08/2013, 06/04/2013, 2013 Hepatitis A Vaccines Aged Out 10/12/2013, 02/18/20 13 No longer eligible based on patient's age to complete this topic HIB Vaccines Aged Out No longer eligi ble based on patient's age to complete this topic HPV Vaccines Aged Out No longer eligi ble based on patient's age to complete this topic IPV Vaccines Aged Out No longer eligi ble based on patient's age to complete this topic Meningococcal B Vaccine Aged Out No l onger eligible based on patient's age to complete [...] HM COLONOSCOPY Routine 12/01/2024 2:38 PM EDT LIPID PANEL, STANDARD Routine 05/12/2024 10:01 AM EDT Lipid screening from Last 3 Months or Most Recently Relevant to Health Maintenance Results * Hm Colonoscopy (12/01/2024 2:38 PM EDT) Historical Provider MD HEALTH MAINTENANCE Final Result * (ABNORMAL) Lipid Panel, Standard (05/12/2024 10:01 AM EDT) Triglycerides 123 <150 mg/dL [facility] Comment:Desirable Triglyceri de: less than 150 mg/dLBorderline High Triglyceride 150-199 mg/dLHigh Triglyceride: 200-499 mg/dLVery High Triglyceride: greater than or equal to 5OO mg/dL Cholesterol 265(H) <200 mg/dL [facility] Comment:Desirable Cholestero l: less than 200 mg/dLBorderline High Cholesterol: 200-239 mg/dLHigh Cholesterol: greater than 239 mg/dL LDL Cholesterol Calculated 181(H) <100 mg/dL [facility] Comment:Desirable LDL: less than 100 mg/dLNear Optimal/Above Optimal LDL: 110- 129 mg/dLBorderline High LDL: 130-159 mg/dLHigh LDL: 160-189 mg/dLVery High LDL: greater than or equal to 190 mg/dL HDL Cholesterol 60 >40 mg/dL [facility] Comment:Desirable HDL: great er than 40 mg/dL Note: This HDL assay may give artificially low results in patients with liver disease. Blood Venous blood specimen / Unknown 05/12/2024 10:01 AM EDT 05/12/2024 11:20 AM EDT [facility] BLOOD ORDERABLES Final Resul t [facility] [address] [place] [address] [phone] from Last 3 Months or Most Recently Relevant to Health Maintenance Insurance * Guarantor: Dru Ramirez Account Type Relation to Patient Date of Phone Billing Address Personal/Family Self 1960 [address] [place], [place] [employer] * Guarantor: Mario Yost, Dru Account Type Relation to Patient Date of Phone Billing Address Personal/Family Self [address] [place] [address] * Guarantor: Mario Yost, Dru Account Type Relation to Patient Date of Phone Billing Address Personal/Family Self [address] [place] [address] * Guarantor: Mario Yost, Dru Account Type Relation to Patient Date of Phone Billing Address Personal/Family Self [address] [place], [place] Care Teams Vaccine Manager Relationship Specialty Start Date End Date Bernadette Woodruff ANP [address] [place] [address] PCP - General Family Medicine 04/11/22
--- OUTSIDE RECORDS SUMMARY | 2025-05-22 09:19 | XMS_ITS | Encounter Summary ---
Author Organization [employer] Address [address] [facility] [address] [place] [address] Care Team Providers Care Naval Aircrewman Operator Name Role Phone Bernadette Woodruff Primary Care Provider [phone] Encounter Details Date Type Department Care Team (Late st Contact Info) Description 12/12/2022 Orders Only [facility] [address] [place] [address] María Johnson LPN Social History Tobacco Use Types Packs/Day Years Used Date Smoking Tobacco: Never Assessed Sex and Gender Information Value Date Recorded Sex Assigned at Male 06/18/2022 10:22 AM EDT Legal Sex Male 10:22 AM EDT Gender Identity Male 06/18/2022 10:22 AM EDT Sexual Orientation Choose not to disclose 2021 10:22 AM EDT documented as of this encounter Plan of Treatment Not on file documented as of this encounter Visit Diagnoses Not on filedocumented in this encounter Care Teams Naval Aircrewman Operator Relationship Specialty Start Date End Date Bernadette Woodruff ANP [address] [place] [id number] PCP - General Family Medicine 04/11/22 documented as of this encounter
--- OUTSIDE RECORDS SUMMARY | 2025-05-22 09:19 | XMS_ITS | Encounter Summary ---
Author Organization [employer] Address [address] [facility] [address]t [place] [address] Care Team Providers Care Senior Credit Analyst Name Role Phone Bernadette Woodruff Primary Care Provider [phone] Encounter Details Date Type Department Care Team (Latest Contact Info) Description 10/29/2019 Abstract [facility] Dental, Provider, DDS Social History Tobacco [...] on filedocumented in this encounter Care Teams Senior Credit Analyst Relationship Specialty Start Date End Date Bernadette Woodruff ANP [address] [place] [phone] PCP - General Family Medicine 04/11/22 documented as of this encounter
--- OUTSIDE RECORDS SUMMARY | 2025-05-22 09:19 | XMS_ITS | Encounter Summary ---
Author Organization [facility] Address [address] [place] [address] Care Team Providers Care Teletype Adjuster Name Role Phone Bernadette Woodruff Primary Care Provider [phone] Reason for Referral * Consultation (Routine) - Authorized Specialty Diagnoses / Procedures Referred By Italo ann Referred To Contact Cardiology Diagnoses Palpitations Bernadette Woodruff [address] [place] [address] Phone: tel: fax: [facility] 4th floor Cardiology Medicine [address] [place] [phone] Phone: tel: fax: Referral ID Status Reason Start Date Expiration Date Visits Requested Visits Authorized [id number] Authorized Specialty Services Required 04/27/2025 05/27/2026 6 6 Encounter Details Date Type Department Care Team (Latest Contact Info) Description 04/27/2025 Transcribe Orders [facility] [address] [place] [address] Bernadette Woodruff [address] [place], [place] [phone] Palpitations (Primary Dx) Social History Tobacco Use Types Packs/Day Years Used Date Smoking Tobacco: Never Smokeless Tobacco: Never Comments:: Alcohol Use Standard Drinks/Week Comments Not [...] Care Team (Late st Contact Info) Description 07/14/2025 3:00 PM EST Office Visit [facility] 4th floor Cardiology Medicine [address] [place] [phone] Lathe Machine Operator: Milton Pacheco MD [address] [place] [phone] Scheduled Referrals Name Type Priority Associated Diagnoses Order Schedule Ambulatory referral to Cardiology Outpatient Referral Routine Palpitations Expected: 04/27/2025, Expires: 05/27/2026 documented as of this encounter Visit Diagnoses Diagnosis Palpitations- Primary documented in this encounter Care Teams Teletype Adjuster Relationship Specialty Start Date End Date Bernadette Woodruff [address] [place] [phone] PCP - General 10/24/23 documented as of this encounter
--- OUTSIDE RECORDS SUMMARY | 2025-05-22 09:19 | XMS_ITS | Encounter Summary ---
Author Organization [employer] Address [address] [facility] [address] [place] [address] Care Team Providers Care Remote Sensing Engineer Name Role Phone Bernadette Woodruff Primary Care Provider [phone] Encounter Details Date Type Department Care Team (Late st Contact Info) Description 09/11/2022 Orders Only [facility] [address] [place] [address] Mel Sandoval LPN Social History Tobacco Use [...] on filedocumented in this encounter Care Teams Remote Sensing Engineer Relationship Specialty Start Date End Date Bernadette Woodruff ANP [address] [place] [address] PCP - General Family Medicine 04/11/22 documented as of this encounter
--- OUTSIDE RECORDS SUMMARY | 2025-05-22 09:20 | XMS_ITS | Clinical Summary ---
Author Organization [facility] Address [address] [place] [address] Care Team Providers Care Literacy Consultant Name Role Phone Bernadette Woodruff Primary Care Provider Allergies Active Allergy Reactions [...] Encounters Date Type Department Care Team Description 04/27/2025 Transcribe Orders [facility] Physician Referral Services [address] [place] [address] Bernadette Woodruff Palpitations (Primary Dx) from Last 3 Months Social History Tobacco [...] 96 12/01/2024 4:20 PM EDT Temperature 36.7 C (98.1 F) 12/01/2024 3:50 PM EDT Respiratory Rate 16 12/01/2024 4:20 PM EDT Oxygen Saturation 96% 12/01/2024 4:20 PM EDT Inhaled Oxygen Concentration - - Weight 93 kg (205 lb) 11/25/2024 9:02 AM EDT Height 182.9 cm (6') 12/01/2024 2:24 PM EDT Body Mass Index 27.8 11/25/2024 9:02 AM EDT Plan of Treatment Upcoming Encounters Date Type Department Care Team (Late st Contact Info) Description 07/14/2025 3:00 PM EST Office Visit [facility] Building 4th floor Cardiology Medicine [address] [place] [phone] Board Layer: Milton Pacheco MD [address] [place] [address] [phone] Health Maintenance Due Date Last Done Comments Basic Metabolic Panel 1960 HIV Screening 1960 Hepatitis C Screening 1960 Diabetes Screening 02/18/1996 Pneumococcal Vaccine: 50+ Ye ars (1 of 1 - PCV) 2011 Zoster Vaccines (1 of 2) 2011 Alcohol/Substance Use Screening 08/19/2024 Depression Screening and Follow-Up 08/19/2024 Social Drivers of Health [place] ual Screening 08/19/2024 COVID-19 Vaccine (1 - 2023-2 5 season) 2025 Influenza Vaccine (#1) 2025 , 07/18/2022, 06/24/2019, Additional history exists DTaP,Tdap,and Td Vaccines (2 - Td or Tdap) 02/22/2026 02/23/2016 Colonoscopy 12/01/2034 12/01/2024 RSV Vaccine (60+ years old a nd patients) (1 - 1-dose 75+ series) 02/18/2036 Hepatitis B Vaccines Completed 09/08/2013, 06/04/2013, 2013 Procedures * Due to [place] [employer] law, this organization might not be sharing negative HIV tests. Procedure Name Priority Date/Time Associated Diagnosis Comments COLONOSCOPY 12/01/2024 from Last 3 Months or Most Recently Relevant to Health Maintenance Results * Due to [place] [employer] law, this organization might not be sharing negative HIV tests. * COLONOSCOPY (12/01/2024) Narrative Procedure Note Wendy Keys MD - 12/01/2024 2:46 PM EDT [facility] Gastroenterology Patient Name: Dru Yost Procedure Date: 12/01/2024 2:46 PM Date of : 1960 Admit Type: Outpatient Age: 64 Room: [facility] 03 Gender: Male Note Status: [...] by the physician, the nurse and the tractor trailer technician in the pre-procedure area in theprocedure [...] Final Resul t from Last 3 Months or Most Recently Relevant to Health Maintenance [place] Care Teams Literacy Consultant Relationship Specialty Start Date End Date Bernadette Woodruff [address] [place] [phone] PCP - General 10/24/23
[2025-05-22 10:36] VITALS: BP 148/84; PULSE 69; RESP 16; TEMP 36.9; O2SAT 98
== END 2025-05-22 10:37 | disposition home or self-care (01) ==
PROVIDERS: Emergency Provider Emergency Medicine
DX: J18.9 Pneumonia, unspecified organism (principal); J06.9 Acute upper respiratory infection, unspecified; R05.9 Cough, unspecified; R51.9 Headache, unspecified; R11.2 Nausea with vomiting, unspecified; M79.10 Myalgia, unspecified site; J02.9 Acute pharyngitis, unspecified; Z11.52 Encounter for screening for COVID-19; Z79.899 Other long term (current) drug therapy
CPT/HCPCS: 71045; 87635; 87651; 99283; 99284

== ENCOUNTER → 2025-05-22 08:10 | Outpatient (BNV) | payer MEDICAID, SELFPAY | PROVIDERS: Emergency Provider Emergency Medicine; Visit Provider Radiology Diagnostic Radiology | DX: J98.4 Other disorders of lung (principal) | CPT/HCPCS: 71045 ==